=== PATIENT | female | born 1945 | race Caucasian/White ===

== ENCOUNTER 2019-11-02 17:25 | Emergency (ER) | payer MEDICARE, OTHER, SELFPAY ==
[2019-11-02] VITALS (7 sets, daily range): BP systolic 122–147; BP diastolic 75–86; PULSE 65–84; RESP 16–21; TEMP 36.2–36.8; O2SAT 94–97
--- NOTE | ~2019-11-02 | XR_ITS ---
EXAMINATION: XR chest 1V portable EXAM DATE: 11/02/2019 18:51 INDICATION: Visual change. Extensive airspace disease on prior study. TECHNIQUE: Portable AP frontal chest x-ray was obtained. Comparison is made to prior examination from 07/25/2019. FINDINGS: Previously seen extensive left-sided pneumonia has resolved. There is large gastroesophagea l hiatal hernia with adjacent atelectasis. No evidence of acute airspace disease today. No sizable pl eural effusion. No pneumothorax. Cardiac silhouette is enlarged but stable in size compared to prior exam. There are bony degenerative changes. IMPRESSION: 1. No acute cardiopulmonary findings. 2. Large hiatal hernia. Reviewed, dictated and finalized at location A. RETE TESTER
--- NOTE | ~2019-11-02 | CT_ITS ---
EXAMINATION: CT brain wo con EXAM DATE: 11/02/2019 18:45 INDICATION: Visual changes. TECHNIQUE: Spiral CT of the head was performed without contrast. Axial, coronal and sagittal images were reviewed. The dose-length product (DLP) for this examination was 605.33 mGy-cm. The exposure w as tailored according to patient size, and iterative reconstruction (ASIR) was used as additional dos e reduction technique. Comparison is made to prior examination from 07/16/2015. FINDINGS: There is no acute intraparenchymal hemorrhage. No evidence of intraparenchymal brain mass lesion. No evidence of acute infarction. Please note that initial head CT has limited sensitivity f or small or acute infarctions. There is mild periventricular and subcortical hypodensity, nonspecific but probably related to small vessel ischemic disease. There is moderate prominence of the sulci a nd ventricles related to cerebral atrophy. There is intracranial carotid arteriosclerosis. There a re no extra-axial collections. There is no mass effect or midline shift. The orbits are unremarkabl e. Soft tissue is unremarkable. The visualized sinuses and mastoid air cells are well aerated. IMPRESSION: 1. No acute intracranial findings. 2. Chronic age related findings. Reviewed, dictated and finalized at location A. UCT PROMOTER SALES PERSON
--- NOTE | 2019-11-02 17:41 | ECG_ITS ---
Measurements Intervals [place] Rate: 80 P: 39 [place]: 207 QRS: -42 QRSD: 82 T: 68 QT: 372 QTc: 430 Interpretive Statements SINUS RHYTHM LEFT AXIS DEVIATION VOLTAGE CRITERIA FOR LVH POOR R WAVE PROGRESSION, ANTERIOR LEADS BORDERLINE ECG Electronically Signed On 11-02-2019 20:28:21 [employer] by Kash Butler D.O.
[2019-11-02 18:03] LABS: Glucose Point of Care 129 (65-105)
--- NOTE | 2019-11-02 18:04 | ED.NEUROSD ---
HPI - Neuro Symptoms/Deficit General Chief Complaint: Neuro Symptoms/Deficit Stated Complaint: Visual Problems Time Seen by Provider: 11/02/19 17:48 Source: patient Mode of arrival: ambulatory Limitations: no limitations History of Present Illness HPI Narrative: This is a 74 year old female that presents to the ER for vision changes earlier today. Reports she was waiting in line at the [facility] and started to feel anxious. Reports she started seeing a black spot in her vision last lasted for about 20 minutes. Reports it then spontaneously resolved. Reports over the last couple weeks she has been feeling her heart racing. Reports she was diagnosed with atrial fibrillation in the end of last year while hospitalized for pneumonia. She has not followed up with a delinquency prevention officer since then. Denies fever, numbness, weakness, chest pain, shortness of breath, abdominal pain, vomiting, or dysuria. Related Data Home Medications Medication Instructions Recorded Confirmed duloxetine 60 mg PO DAILY 07/25/19 07/25/19 lisinopril 20 mg PO DAILY 07/25/19 07/25/19 simvastatin 20 mg PO DAILY 07/25/19 07/25/19 Allergies Allergy/AdvReac Type Severity Reaction Status Date / Time No Known Allergies Allergy Verified 07/30/19 12:03 Review of Systems Review of Systems: Narrative: CONSTITUTIONAL: Denies fever EYES: Reports visual changes ENT: Denies rhinorrhea, congestion, sore throat CARDIOVASCULAR: Reports palpitations. Denies chest pain RESPIRATORY: Denies cough or dyspnea. GASTROINTESTINAL: Denies abdominal pain, nausea, vomiting GENITOURINARY: Denies dysuria or hematuria. NEUROLOGIC: Denies headache, numbness, or weakness. All systems reviewed & are unremarkable except as noted in HPI and below PMFSH Past Medical History Medical History (Updated 11/02/19 @ 20:24 by Karli Yo PA-C) Anxiety Cerebral arteriosclerosis with history of previous stroke Depression HTN (hypertension) Paroxysmal atrial flutter Phlebitis In leg, taking Eliquis Shingles Surgical History Surgical History (System 07/30/19 @ 12:03 by Francisca Frazier) History of appendectomy History of tonsillectomy Social History Social History (System 07/30/19 @ 12:03 by Francisca Frazier) Smoking status: Never smoker Alcohol intake: current Drinks per week: 20 Substance use: never Gender identity (if verbalized by the patient): Female Spiritual care concerns: No Agree to blood products: Yes Exam Narrative: Exam Narrative: GENERAL: Well-appearing, well-nourished, and in no acute distress. HEAD: Normocephalic, atraumatic. EYES: PERRLA and EOMI. ENT: Nares clear, no rhinorrhea or epistaxis. Mucous membranes moist. Oropharynx without tonsillar hypertrophy exudate or other lesions. Bilateral TMs pearly goyal non-bulging NECK: Supple. No adenopathy or masses. CHEST: Clear to auscultation. No respiratory distress. No wheezes rales or rhonchi HEART: Regular rate and rhythm. No murmur heard. Normal peripheral pulses. ABDOMEN: Soft, nontender, nondistended, normal active bowel sounds. EXTREMITIES: Normal range of motion. No edema. Strength equal in bilateral upper and lower extremities SKIN: Warm, dry, no rash. NEURO: No focal deficits. Alert and oriented x3. CN II-XII grossly intact. Normal heel to angel PSYCH: Normal mood and affect Course Consultations Consultation #1: Spoke with Dr. Stephen about patient and workup who will follow up in clinic Date: 11/02/19 Time: 20:23 Vital Signs Vital signs: Vital Signs Respiratory Rate 21 H 11/02/19 17:37 Pulse Oximetry 94 11/02/19 17:37 Temperature 97.2 F L 11/02/19 17:41 Pulse Rate 83 11/02/19 19:21 Respiratory Rate 17 11/02/19 19:21 Blood Pressure 140/75 11/02/19 19:21 Pulse Oximetry 94 11/02/19 19:21 MDM - Neuro Symptoms/Deficit MDM Narrative Medical decision making narrative: Patient presents to the emergency department for vision changes earlier this afternoon. Patricia
[2019-11-02 18:09] LABS: Basophils Percent Auto 0.7 % (0.2-1.2); Eosinophils Percent Auto 0.5 % (0-4.4); Hematocrit 42.3 % (37.0-47.0); Hemoglobin 13.4 g/dL (12.0-15.0); Immature Granulocyte Absolute 0.02 K/mm3 (0.00-0.031); Immature Granulocyte Percent A 0.3 % (0-0.5); Lymphocytes Absolute Auto 1.47 K/mm3 (0.9-3.2); Lymphocytes Percent Auto 25.2 % (18.3-44.2); Mean Corpuscular HGB Conc 31.7 g/dl (32-36); Mean Corpuscular Volume 85.3 fl (80-100); Mean Platelet Volume 9.6 fl (7.4-10.4); Monocytes Absolute Auto 0.5 K/mm3 (0.1-0.6); Monocytes Percent Auto 9.1 % (2.6-8.5); Neutrophils Absolute Auto 3.7 K/mm3 (1.3-6.7); Neutrophils Percent Auto 64.2 % (45.5-73.1); Platelet Count Result 226 k/mm3 (150-375); Red Blood Count 4.96 M/mm3 (4.2-5.4); Red Cell Distribution Width 15.1 % (11.5-14.5); White Blood Count 5.8 K/mm3 (4.5-10.0)
[2019-11-02 18:18] LABS: INR 1.1; Prothrombin Time 13.6 Seconds (11.1-14.7)
[2019-11-02 18:19] LABS: Blood Urea Nitrogen 14 mg/dL (7-17); Calcium 9.5 mg/dL (8.4-10.2); Carbon Dioxide 23 mmol/L (22-30); Chloride 104 mmol/L (98-107); Estimated CRCL calculation 58 ml/min; Estimated Glomerular Filt Rate > 60; Glucose 132 mg/dL (65-105); Partial Thromboplastin Time 29.7 SECONDS (22.3-36.8); Potassium 4.1 mmol/L (3.4-5.0); Sodium 140 mmol/L (137-145)
[2019-11-02 18:31] LABS: Troponin I < 0.012 ng/mL (0.000-0.034)
[2019-11-02 18:32] LABS: Hemoglobin A1C 5.9 % (<5.7)
--- NOTE | 2019-11-02 19:12 | PC.NURSE ---
Bedside report to CARTER Faye, to continue care.
== END 2019-11-02 20:40 | disposition home or self-care (01) ==
PROVIDERS: Emergency Medicine Emergency Medical Services; Physician Assistant; Emergency Provider Emergency Medicine
DX: H53.9 Unspecified visual disturbance (principal); R00.2 Palpitations; I10 Essential (primary) hypertension; I48.92 Unspecified atrial flutter; I48.91 Unspecified atrial fibrillation; Z79.01 Long term (current) use of anticoagulants; I67.2 Cerebral atherosclerosis; Z86.73 Personal history of transient ischemic attack (TIA), and cerebral infarction without residual deficits; R73.9 Hyperglycemia, unspecified; R94.31 Abnormal electrocardiogram [ECG] [EKG]; K44.9 Diaphragmatic hernia without obstruction or gangrene
CPT/HCPCS: 36415; 70450; 71045; 80048; 82948; 83036; 84443; 84484; 85025; 85610; 85730; 93005; 99284

== ENCOUNTER 2019-11-24 13:44 | Observation (INO) | payer MEDICARE, OTHER, SELFPAY ==
[2019-11-24] VITALS (11 sets, daily range): BP systolic 133–165; BP diastolic 63–97; PULSE 87–101; RESP 16–29; TEMP 36.7–37.7; O2SAT 92–96; BMI 34.4
--- NOTE | ~2019-11-24 | XR_ITS ---
XR chest 1V portable 11/24/2019 16:09 Indication: Cough and dyspnea. Hypertension. Procedure: AP portable chest Comparison: Comparison to multiple prior studies sequentially, with oldest reviewed study dated 07/02. Findings: Borderline heart size. Large hiatal hernia. Bibasilar airspace disease, compatible with pne umonia. No pleural effusion or pneumothorax. No acute osseous abnormality. Impression: 1: Bibasilar airspace disease, compatible with pneumonia. Reviewed, dictated and finalized at location A. Impression: 1: Bibasilar airspace disease, compatible with pneumonia.
--- NOTE | 2019-11-24 13:59 | ED.URI ---
HPI - URI/Sore Throat General Chief Complaint: Shortness of Breath/Dyspnea Stated Complaint: COUGH, SOB Time Seen by Provider: 11/24/19 13:56 Source: patient and RN notes reviewed Mode of arrival: ambulatory Limitations: no limitations History of Present Illness HPI Narrative: Pt is a 74 y/o female who presents to the ED with c/o SOB and cough. She notes that she was admitted to [facility] on 07/26/19 for pneumonia, and states that her current symptoms feel similar to her previous pneumonia. Pt notes that she was also diagnosed with paroxysmal atrial flutter while in the hospital, and states that she was prescribed Metoprolol. She states that she hasn't been taking her Metoprolol as prescribed. Pt describes her recent cough as loose, but notes that she hasn't been consistently producing phlegm. She also reports central chest pain, body aches, subjective fever, and chills. Pt states that she is currently prescribed Eliquis 5 mg, but notes that she hasn't taken any of her normal medications this morning. She states that she hasn't had any recent travel. Pt denies any Hx of asthma or COPD. MD elicited complaint: cough and other (SOB) Pertinent past history: pneumonia Associated symptoms: fever (subjective), chills, chest pain (central chest pain) and other (body aches) Related Data Home Medications Medication Instructions Recorded Confirmed duloxetine 60 mg PO DAILY 07/25/19 07/25/19 lisinopril 20 mg PO DAILY 07/25/19 07/25/19 simvastatin 20 mg PO DAILY 07/25/19 07/25/19 Allergies Allergy/AdvReac Type Severity Reaction Status Date / Time No Known Allergies Allergy Verified 11/24/19 14:05 Review of Systems Review of Systems: Narrative: CONSTITUTIONAL: Reports subjective fever, chills, and body aches. Denies sweats. ENT: Denies rhinorrhea, congestion, sore throat, or otalgia. CARDIOVASCULAR: Reports central chest pain. Denies palpitations or edema. RESPIRATORY: Reports cough and dyspnea. GASTROINTESTINAL: Denies abdominal pain, nausea, vomiting, or diarrhea. All systems reviewed & are unremarkable except as noted in HPI and below PMFSH Past Medical History Medical History (Updated 11/24/19 @ 16:40 by Antonia Phelan MD) Anxiety Cerebral arteriosclerosis with history of previous stroke Depression HTN (hypertension) Paroxysmal atrial flutter Phlebitis In leg, taking Eliquis Pneumonia Shingles Surgical History Surgical History History of appendectomy History of tonsillectomy Social History Social History Smoking status: Never smoker Alcohol intake: current Drinks per week: 20 Substance use: never Gender identity (if verbalized by the patient): Female Spiritual care concerns: No Agree to blood products: Yes Exam Narrative: Exam Narrative: GENERAL: Well-appearing, well-nourished, and in no acute distress. HEAD: Normocephalic, atraumatic. EYES: PERRLA and EOMI. ENT: Nares clear, no rhinorrhea or epistaxis. Mucous membranes moist. NECK: Supple. CHEST: Coarse breath sounds. Mild tachypnea. Borderline hypoxemia. HEART: Regular rate and rhythm. No murmur heard. Normal peripheral pulses. ABDOMEN: Soft, nontender, nondistended, normal active bowel sounds. EXTREMITIES: Normal range of motion. No edema. SKIN: Warm, dry, no rash. NEURO: No focal deficits. Alert and oriented. Course Course Emergency Course: Patient presented to the emergency department for evaluation of cough and shortness of breath. At the time of initial assessment, ABCs are intact, vital signs notable for borderline hypoxemia. No yin respiratory distress, patient is able to converse, but does become dyspneic. Patient has recent history of pneumonia. Breath sounds are coarse. IV access obtained and labs are drawn. Laboratory results show a leukocytosis with left shift. There is lymphopenia as well. No transaminitis. No evidence of
--- NOTE | 2019-11-24 14:00 | ECG_ITS ---
Measurements Intervals [place] Rate: 92 P: 28 [place]: 172 QRS: -40 QRSD: 89 T: 68 QT: 359 QTc: 445 Interpretive Statements SINUS RHYTHM LEFT AXIS DEVIATION VOLTAGE CRITERIA FOR LVH POOR R WAVE PROGRESSION, ANTERIOR LEADS BORDERLINE ST-T WAVE ABNORMALITY- LATERAL LEADS BASELINE WANDER- I, II, III, AVL, AVF, V4-V6 BORDERLINE ECG Electronically Signed On 11-24-2019 16:13:33 CDT by Kash Butler D.O.
[2019-11-24 14:25] LABS: Alveolar/Arterial O2 Gradient 48.8 mmHg; Base Excess ABG 1.8 mEq/l (+/-2.0); Device ROOM AIR; Fractional Inspired Oxygen 21 %; HCO3 ABG 24.6 mEq/l (22.0-26.0); Modified Allen's Test Pass; Oxygen Content ABG 16.9 %vol (16.0-22.0); Oxygen Saturation ABG 93.6 % (95.0-100.0); Oxyhemoglobin 93.3 % THb (90.0-100.0); PCO2 ABG 32.8 mmHg (35.0-45.0); PO2 ABG 61.7 mmHg (80.0-100.0); PO2 FiO2 Ratio Arterial Blood 2.94 %; Site Drawn RIGHT RADIAL; Total Hemoglobin 12.9 g/dL (12.0-18.0); pH ABG 7.493 (7.350-7.450)
[2019-11-24 14:31] LABS: Basophils Percent Auto 0.3 % (0.2-1.2); Eosinophils Percent Auto 0.1 % (0-4.4); Hematocrit 40.1 % (37.0-47.0); Hemoglobin 12.5 g/dL (12.0-15.0); Immature Granulocyte Absolute 0.03 K/mm3 (0.00-0.031); Immature Granulocyte Percent A 0.2 % (0-0.5); Lymphocytes Percent Auto 7.3 % (18.3-44.2); Mean Corpuscular HGB Conc 31.2 g/dl (32-36); Mean Corpuscular Volume 86.6 fl (80-100); Mean Platelet Volume 9.7 fl (7.4-10.4); Monocytes Absolute Auto 0.6 K/mm3 (0.1-0.6); Monocytes Percent Auto 4.7 % (2.6-8.5); Neutrophils Absolute Auto 10.8 K/mm3 (1.3-6.7); Neutrophils Percent Auto 87.4 % (45.5-73.1); Platelet Count Result 258 k/mm3 (150-375); Red Blood Count 4.63 M/mm3 (4.2-5.4); Red Cell Distribution Width 14.8 % (11.5-14.5); White Blood Count 12.4 K/mm3 (4.5-10.0)
[2019-11-24] MEDS: MAGNESIUM SULF 2 GM/WATER 50ML 2 GM/50 ML BAG IVPB (14:32)
[2019-11-24] MEDS: SODIUM CHLORIDE 0.9% IV 1,000 ML 999 ML IV CONT (14:33)
[2019-11-24 14:41] LABS: Prothrombin Time 12.6 Seconds (11.1-14.7)
[2019-11-24 14:42] LABS: Lactic Acid Reflex 1.9 mmol/L (0.7-2.1); Partial Thromboplastin Time 26.2 SECONDS (22.3-36.8)
[2019-11-24 14:45] LABS: D Dimer 0.68 ug/mL (<0.48)
[2019-11-24 14:46] LABS: Alanine Aminotransferase 14 U/L (4-35); Albumin Level 4.3 g/dL (3.5-5.1); Alkaline Phosphatase 74 U/L (38-126); Aspartate Amino Transferase 27 U/L (14-36); Bilirubin,Total 0.7 mg/dL (0.2-1.3); Blood Urea Nitrogen 12 mg/dL (7-17); CRP 1.6 mg/dL (<1.0); Calcium 8.9 mg/dL (8.4-10.2); Carbon Dioxide 22 mmol/L (22-30); Chloride 104 mmol/L (98-107); Estimated Glomerular Filt Rate > 60; Glucose 133 mg/dL (65-105); Lactate Dehydrogenase 515 U/L (313-618); Potassium 4.1 mmol/L (3.4-5.0); Sodium 135 mmol/L (137-145)
[2019-11-24 14:55] LABS: NT Pro B Type Natriuretic Pept 69 PG/ML (5-100); Troponin I < 0.012 ng/mL (0.000-0.034)
--- NOTE | 2019-11-24 18:07 | PC.NURSE ---
Food tray ordered for pt, spoke to Jasmyne in dietary.
--- NOTE | 2019-11-24 18:37 | ADMGEN ---
This patient, Mandi Ramirez, was admitted to Medical Room 252-. Patient/family oriented to hospital policies and general routines including ID bracelet, bed and alarms, visiting hours, pain management, procedures, bathroom and other care routines, personal items, smoking policy, room service/diet, and visiting hours. Valuables list has been completed. Information on how to activate the Rapid Response Team has been discussed. Patient/Family are encouraged to report perceived risks to care and to ask questions if they do not understand what they are told or what they should do.
[2019-11-24] MEDS: ACETAMINOPHEN 325 MG TABLET 650 MG PO (21:37)
[2019-11-25] MEDS: DULOXETINE 60 MG CAPSULE.DR PO ×2 (00:13→10:06)
[2019-11-25] MEDS: SIMVASTATIN 20 MG TABLET PO ×2 (00:13→10:06)
[2019-11-25] MEDS: APIXABAN 5 MG TABLET PO ×2 (00:13→10:06)
[2019-11-25] MEDS: lisinopriL 20 MG TABLET PO ×2 (00:13→10:06)
--- NOTE | 2019-11-25 00:15 | PM.IMHP ---
H&P: HPI History of Present Illness Chief complaint: pneumonia symptoms Narrative: Date and time of patient contact: 11/25/2019 at 12:15 a.m. Mandi Ramirez is a 74 year old female with a past medical history of hypertension, paroxysmal atrial fibrillation, and obesity who presented to the ER with symptoms to similar episodes of pneumonia. She states that she has chronic shortness of breath. But she woke up on the morning of the with overwhelming body aches. It was also accompanied by fatigue. However she states that she has been having a long-standing issue with intermittent fatigue. However prior to coming to the ER she developed chills and subjective fever. She could not find her thermometer to check her temperature. She has been having a cough that is for the most part nonproductive. She was having some chest discomfort specifically associated with the cough. Charlton T-max since admission is 99.9. She does have intermittent palpitations but she never filled her prescription for metoprolol b.i.d. that was she was prescribed at the time of discharge from last hospitalization July 25, 2019. She had been started on the metoprolol due to paroxysmal atrial fibrillation. She did not get the medication filled because she was worried about cost. She has been taking Eliquis at home. She was discharged on Eliquis 5 mg p.o. b.i.d. which she was supposed to continue however she has decreased it down to Eliquis once daily. She had previously been on Eliquis 2.5 mg a day due to superficial thrombophlebitis history. She denies any lower extremity swelling. And has a disrupted sleep pattern. In fact she drinks four mixed drinks with 1 shot each a night in addition to 2 Tylenol p.m. to help her sleep. She has never had a sleep study. She reports that her snores more than she does. He does tell her that she snores on occasion. She denies any recent ill contacts or recent travel. However she did leave the house 7 days ago to go shopping at several different stores. Her is not currently sick. She does have chronic stress urinary incontinence. She denies any rhinorrhea, nasal congestion, or odynophagia. She has never had pulmonary function testing. She does not use nebulizers at home. Review of Systems Review of Systems: Narrative: 12 systems were reviewed with pertinent positives and negatives per HPI. Except as documented in the HPI, all other systems were reviewed and are negative. [facility] Past Medical History Medical History (Updated 11/25/19 @ 03:06 by Shakira Espinoza DO) Aortic stenosis Echocardiogram May 2019 1. The left ventricle has normal size with moderate concentric left ventricular hypertrophy. Overall the left ventricular function is good, EF 55-60% visually. 2. Right atrial chamber dimension is mildly enlarged. 3. Left atrial chamber dimension is mildly enlarged. 4. Right ventricular chamber dimension is mildly enlarged with normal systolic function. 5. There is mild aortic valve stenosis with a peak velocity of 221 cm/s, mean gradient of 9 mmHg, and aortic valve area of 2.1 cm2. 6. Mild pulmonary hypertension, estimated pulmonary arterial systolic pressure is 41 mmHg. 7. There is mild aortic atherosclerosis. 8. Atrial fibrillation versus flutter. 9. Technically difficult study. Depression Dyslipidemia Essential hypertension Overflow stress urinary incontinence in female Paroxysmal atrial flutter Diagnosed July 2019 Pneumonia Treated as outpatient July 2015 and January 2018, was admitted as inpatient July 2019 Pulmonary hypertension Mild on echocardiogram from May 2019 with RVSP 41 Shingles Superficial phlebitis TIA (transient ischemic attack) Surgical History Surgical History (Updated 11/25/19 @ 01:34 by Shakira Espinoza DO) History of appendectomy History of tonsillectomy Status post cataract extraction of both eyes with insertion of intraocular lens
[2019-11-25] MEDS: ALBUTEROL SULFATE (*SP) AEROSOL 1 PUFF 2 PUFF INHALATION ×3 (02:24→14:28)
[2019-11-25 06:01] LABS: Basophils Percent Auto 0.2 % (0.2-1.2); Eosinophils Percent Auto 0.2 % (0-4.4); Hematocrit 33.9 % (37.0-47.0); Hemoglobin 10.6 g/dL (12.0-15.0); Immature Granulocyte Absolute 0.05 K/mm3 (0.00-0.031); Immature Granulocyte Percent A 0.4 % (0-0.5); Lymphocytes Absolute Auto 1.74 K/mm3 (0.9-3.2); Lymphocytes Percent Auto 14.2 % (18.3-44.2); Mean Corpuscular HGB Conc 31.3 g/dl (32-36); Mean Corpuscular Hemoglobin 27.1 pg (26-34); Mean Corpuscular Volume 86.7 fl (80-100); Mean Platelet Volume 10.3 fl (7.4-10.4); Monocytes Absolute Auto 0.5 K/mm3 (0.1-0.6); Monocytes Percent Auto 4.4 % (2.6-8.5); Neutrophils Absolute Auto 9.9 K/mm3 (1.3-6.7); Neutrophils Percent Auto 80.6 % (45.5-73.1); Platelet Count Result 231 k/mm3 (150-375); Red Blood Count 3.91 M/mm3 (4.2-5.4); Red Cell Distribution Width 14.8 % (11.5-14.5); White Blood Count 12.3 K/mm3 (4.5-10.0)
[2019-11-25 06:02] LABS: Blood Urea Nitrogen 13 mg/dL (7-17); Calcium 8.5 mg/dL (8.4-10.2); Carbon Dioxide 26 mmol/L (22-30); Chloride 107 mmol/L (98-107); Estimated CRCL calculation 86 ml/min; Estimated Glomerular Filt Rate > 60; Glucose 114 mg/dL (65-105); Potassium 3.6 mmol/L (3.4-5.0); Sodium 136 mmol/L (137-145)
[2019-11-25 06:30] VITALS: BP 141/63; PULSE 84; RESP 20; TEMP 36.7; O2SAT 92
[2019-11-25 10:05] VITALS: PULSE 84
[2019-11-25] MEDS: ACETAMINOPHEN 325 MG TABLET 650 MG PO (10:05)
[2019-11-25] MEDS: METOPROLOL TARTRATE 25 MG TABLET PO (10:05)
[2019-11-25 13:50] VITALS: O2SAT 95
[2019-11-25 13:55] VITALS: O2SAT 94
[2019-11-25 14:00] VITALS: O2SAT 95
--- NOTE | 2019-11-25 14:10 | HOMEO2EVAL ---
Home Oxygen Evaluation RC: Home Oxygen (O2) Evaluation Start: 11/25/19 07:21 Freq: ONCE Status: Active Protocol: RPE Activity Type Activity Date Activity User E-Sign Co-Sign Detail Recorded Client Recorded Date Recorded By Document 11/25/19 13:50 RAIN [id number] 11/25/19 14:10 RAIN Document 11/25/19 13:55 RAIN [id number] 11/25/19 14:10 RAIN Document 11/25/19 14:00 RAIN [id number] 11/25/19 14:10 RAIN 11/25/19 11/25/19 11/25/19 13:50 13:55 14:00 Home O2 Evaluation Test Phase Resting Exercise Resting Oxygen Delivery Room Air Room Air Room Air Pulse Oximetry (90-100 %) 95 94 95 Ambulation Distance (feet) 25 Home Oxygen Evaluation Comments No home o2 needed Treatment Charges O2 Evaluation
--- NOTE | 2019-11-25 14:11 | PCRCNOTE ---
Home o2 eval done, No home o2 needed
--- NOTE | 2019-11-25 16:20 | PM.DS ---
DS: Diagnosis Admitting Diagnosis Admitting Diagnosis: Pneumonia, unspecified organism Discharge Diagnosis (1) Community acquired pneumonia: Qualifiers: Laterality: unspecified laterality Qualified Code(s): J18.9 - Pneumonia, unspecified organism Code(s): J18.9 - Pneumonia, unspecified organism Status: Acute Assessment and Plan: Date of Service 11/25/19 Ms. Tres Ramirez is a 74yo F with history of paroxysmal atrial flutter, hypertension who presented to the emergency department for evaluation of sudden onset body aches, shortness of breath, subjective fever. She reported no recent ill contacts or recent travel. She had been following state-wide stay at home orders aside from a trip to the grocery store around 7 days prior to arrival. Chest x-ray revealed bibasilar airspace disease compatible with pneumonia. She was started on empiric antibiotic therapy with azithromycin and Rocephin. She met criteria for COVID-19 testing and was tested here through the [place] [facility]. She was very mildly hypoxemic on arterial blood gas, but was tolerating room air at time of discharge. She was hemodynamically stable for discharge on 11/25/2019 with instructions to follow-up with her primary care provider. She was provided with detailed instructions regarding possible COVID-19 diagnosis and self isolation. Was notified by infection control 11/27/19 AM that her COVID-19 testing was negative. I called and spoke with the patient 11/27/19 regarding her negative results and she reported she was feeling improved. She was again reminded of worrisome signs and symptoms to be aware of and to call her PCP for any further issues. She was discharged with oral cefdinir and azithromycin to complete the course along with an albuterol inhaler. (2) Paroxysmal atrial flutter: Code(s): I48.92 - Unspecified atrial flutter Status: Chronic Assessment and Plan: Patient noted she was diagnosed with paroxysmal atrial flutter back in July 2019. She noted that she was started on metoprolol at that time, but she did not picker and packer prescription for the metoprolol. She was also started on Eliquis and has been taking less than the prescribed dose. Restarted back on metoprolol and Eliquis here. Follow-up with PCP. (3) History of snoring: Code(s): Z87.898 - Personal history of other specified conditions Status: Chronic Assessment and Plan: Patient reports symptoms of intermittent fatigue, disrupted sleep, and insomnia. Consider sleep study outpatient eventually to evaluate for sleep apnea. Follow-up with PCP. DS: Summary Time Spent with Patient Time attestation: Total time spent providing and/or coordinating discharge services: 40 minutes Exam Narrative: Exam Narrative: General: Female resting supine in bed in no acute distress. HEENT: Normocephalic, EOMI, oral mucosa moist. Cardiovascular: Rate and rhythm are regular. Respiratory: Lungs clear to auscultation all cruz. Non-labored breathing. Tolerating room air. Abdomen: Soft, non-tender, non-distended, bowel sounds present. Extremities: Peripheral pulses intact. No edema. Neuro: No focal neurological deficits. Speech is clear. DS: Data Imaging Radiologist's impression: ITS Impressions Chest X-Ray 11/24/19 16:12 Impression: 1: Bibasilar airspace disease, compatible with pneumonia. Discharge Plan Discharge Attending physician on discharge: Jennifer Ho Consulting providers: Rory Lino ; Kash Butler ; Shakira Espinoza ; Rebeka Gould Discharging Clinician: Rebeka Gould Anticipated Discharge Date/Time: 11/25/19 12:30 Patient Disposition: Home, Self-Care Activity: as tolerated Diet: as tolerated Discharge Instructions: You will be contacted with your COVID-19 testing results when they are luis [email or web address]
[2019-11-26 12:30] LABS: Procalcitonin <0.10 ng/mL (<0.10)
[2019-12-08 14:02] LABS: Mycoplasma IgM Antibody Titer 254 U/mL (<770)
== END 2019-11-25 16:55 | disposition home or self-care (01) ==
LOC: ANHED 16:40 → ANH2MED 18:35
PROVIDERS: Internal Medicine; Admitting Provider Internal Medicine; Emergency Provider Emergency Medicine; Visit Provider Family Medicine
DX: J18.9 Pneumonia, unspecified organism (principal); R09.02 Hypoxemia; I48.92 Unspecified atrial flutter; I10 Essential (primary) hypertension; R06.83 Snoring; I27.20 Pulmonary hypertension, unspecified; E78.5 Hyperlipidemia, unspecified; N39.490 Overflow incontinence; N39.3 Stress incontinence (female) (male); Z87.891 Personal history of nicotine dependence; Z86.73 Personal history of transient ischemic attack (TIA), and cerebral infarction without residual deficits; Z20.828 Contact with and (suspected) exposure to other viral communicable diseases
CPT/HCPCS: 36415; 36600; 71045; 80048; 80053; 82805; 83605; 83615; 83880; 84145; 84484; 85025; 85380; 85610; 85730; 86140; 86738; 87040; 87804; 93005; 94618; 94640; 96365; 96367; 99285; A9270; G0378; J0456; J0696; J3475; J7030

== ENCOUNTER 2020-08-26 15:02 | Emergency (ER) | payer MEDICARE, OTHER, SELFPAY ==
[2020-08-26 15:21] VITALS: BP 140/71; PULSE 65; RESP 18; TEMP 36.6; O2SAT 95
--- NOTE | 2020-08-26 16:48 | ED.SKABFB ---
HPI - Skin/Abscess/Foreign Bdy General Chief complaint: Skin/Abscess/Foreign Body Stated complaint: rash under left breast Time Seen by Provider: 08/26/20 16:15 Source: patient Mode of arrival: ambulatory Limitations: no limitations History of Present Illness HPI narrative: This is a 75 year old female that presents to the ER for a rash under the left breast noted yesterday. Reports the rash is itchy and painful. Denies fever. Related Data Allergies Allergy/AdvReac Type Severity Reaction Status Date / Time No Known Allergies Allergy Verified 08/26/20 15:24 Review of Systems Review of Systems: Narrative: CONSTITUTIONAL: Denies fever SKIN: Reports rash and itching. All systems reviewed & are unremarkable except as noted in HPI and below PMFSH Past Medical History Medical History (Updated 08/26/20 @ 16:58 by Karli Yo PA-C) History of hyperlipidemia History of hypertension Social History Social History Gender identity (if verbalized by the patient): Female Exam Narrative: Exam Narrative: GENERAL: Well-appearing, well-nourished, and in no acute distress. HEAD: Normocephalic, atraumatic. EYES: EOMI. EXTREMITIES: Normal range of motion. No edema. SKIN: Warm, dry. Under the left breast there is a small area of erythema consistent with intertrigo NEURO: No focal deficits. Alert and oriented x3. PSYCH: Normal mood and affect Course Vital Signs Vital signs: Vital Signs Temperature 97.9 F 08/26/20 15:21 Pulse Rate 65 08/26/20 15:21 Respiratory Rate 18 08/26/20 15:21 Blood Pressure 140/71 08/26/20 15:21 Pulse Oximetry 95 08/26/20 15:21 Temperature 97.9 F 08/26/20 15:21 Pulse Rate 90 08/26/20 17:10 Respiratory Rate 20 08/26/20 17:10 Blood Pressure 138/88 08/26/20 17:10 Pulse Oximetry 100 08/26/20 17:10 MDM - Skin/Abscess/Foreign Bdy MDM Narrative Medical decision making narrative: Patient presents to the ER for rash consistent with intertrigo. Was instructed on care and will be started on antifungal cream. She was instructed to follow-up with her primary care doctor Critical Care Time Critical Care Time Critical Care Time: No Discharge Plan Discharge Clinical Impression: Candidal intertrigo Patient Disposition: Home, Self-Care Condition: Stable Instructions: Skin Yeast Infection (ED) Additional Instructions: Return to the emergency department if you experience fever, redness and swelling of your wound, abnormal drainage of your wound, or any other symptoms that are concerning to you Keep the area clean and dry. Apply antifungal cream as prescribed Follow-up with your primary care doctor Prescriptions: New clotrimazole 1 % cream 1 applic topical BID 14 Days Qty: 28 RF: 0 Follow-up/Referrals: KARINA,XIMENA Montesinos MD [Primary Care Provider] - 1 Week
[2020-08-26 17:10] VITALS: BP 138/88; PULSE 90; RESP 20; O2SAT 100
== END 2020-08-26 17:11 | disposition home or self-care (01) ==
PROVIDERS: Emergency Provider Emergency Medicine; PCP Internal Medicine
DX: B37.2 Candidiasis of skin and nail (principal); E78.5 Hyperlipidemia, unspecified; I10 Essential (primary) hypertension; L30.4 Erythema intertrigo
CPT/HCPCS: 99283

== ENCOUNTER 2021-03-15 11:33 | Observation (INO) | payer MEDICARE, OTHER, SELFPAY ==
[2021-03-15] VITALS (10 sets, daily range): BP systolic 148–197; BP diastolic 74–100; PULSE 71–98; RESP 18–25; TEMP 36.4–37.5; O2SAT 23–97; BMI 34.9
--- NOTE | ~2021-03-15 | XR_ITS ---
EXAMINATION: XR chest 1V portable EXAM DATE: 03/15/2021 12:12 INDICATION: Dyspnea, shortness of breath for a day. History high blood pressure. TECHNIQUE: Portable AP frontal chest x-ray was obtained. Comparison is made to prior examination from 11/24/2019. FINDINGS: There are small patchy bilateral opacities, atelectasis or infection. The cardiomediastinal silhouette is prominent but magnified on this AP technique. There is no pneumothorax suspected. Ther e are no pleural effusions. IMPRESSION: Small patchy bilateral mid and lower lung zone opacities, could be infection or atelectas is. Reviewed, dictated and finalized at location B. IMPRESSION: Small patchy bilateral mid and lower lung zone opacities, could be infection or atelectasis.
--- NOTE | ~2021-03-15 | CT_ITS ---
EXAMINATION: CTA chest PE protocol DATE: 03/15/2021 14:06 INDICATION: Chest pain. Shortness of breath. TECHNIQUE: Computed tomography angiography (CTA) of the chest was performed with 100 mL Omnipaque-350 intravenous contrast timed to evaluate the pulmonary arteries. Coronal maximum intensity projection 3D-reconstructions were created by the technologist. Automated exposure control and iterative reconst ruction technique were employed. The dose-length product was 545.23 mGy-cm. COMPARISON: Chest CT 07/16/2015 FINDINGS: There is chronic peripheral septal thickening in all lobes with a peripheral and lower lung predominance with architectural distortion and associated with groundglass opacities, consistent wit h chronic interstitial lung disease. No bronchiectasis or honeycombing. There are groundglass opaciti es and centrilobular nodules in left upper lobe and left lower lobe and peripheral lingular airspace opacities, consistent with pneumonia. No pleural effusion. Cardiomegaly is noted. No pericardial effu roly. There is a large sliding hiatal hernia. There is no pulmonary embolus. There is mild thoracic s pondylosis. IMPRESSION: 1. No pulmonary embolus. 2. Acute left lung disease, consistent with pneumonia. 3. Mild chronic interstitial lung disease in a pattern of nonspecific interstitial pneumonia (NSIP). 4. Large sliding hiatal hernia. Reviewed, dictated and finalized at location A. IMPRESSION: 1. No pulmonary embolus. 2. Acute left lung disease, consistent with pneumonia. 3. Mild chronic interstitial lung disease in a pattern of nonspecific interstit ial pneumonia (NSIP). 4. Large sliding hiatal hernia.
--- NOTE | 2021-03-15 11:51 | ECG_ITS ---
Measurements Intervals [place] Rate: 72 P: -1 [place]: 190 QRS: -38 QRSD: 85 T: 114 QT: 373 QTc: 410 Interpretive Statements SINUS RHYTHM LEFT AXIS DEVIATION LEFT VENTRICULAR HYPERTROPHY AND ST-T CHANGE BORDERLINE R WAVE PROGRESSION, ANTERIOR LEADS BASELINE WANDER- I, II, AVR, AVL, V1 BORDERLINE ECG Electronically Signed On 03-15-2021 15:55:34 CDT by Kash Butler D.O.
[2021-03-15 12:08] LABS: Basophils Percent Auto 0.3 % (0.2-1.2); Eosinophils Percent Auto 0.1 % (0-4.4); Hematocrit 48.5 % (37.0-47.0); Hemoglobin 15.4 g/dL (12.0-15.0); Immature Granulocyte Absolute 0.04 K/mm3 (0.00-0.031); Immature Granulocyte Percent A 0.3 % (0-0.5); Lymphocytes Absolute Auto 1.55 K/mm3 (0.9-3.2); Lymphocytes Percent Auto 13.4 % (18.3-44.2); Mean Corpuscular HGB Conc 31.8 g/dl (32-36); Mean Corpuscular Hemoglobin 30.1 pg (26-34); Mean Corpuscular Volume 94.7 fl (80-100); Mean Platelet Volume 9.8 fl (7.4-10.4); Monocytes Absolute Auto 0.5 K/mm3 (0.1-0.6); Monocytes Percent Auto 4.5 % (2.6-8.5); Neutrophils Absolute Auto 9.4 K/mm3 (1.3-6.7); Neutrophils Percent Auto 81.4 % (45.5-73.1); Platelet Count Result 180 k/mm3 (150-375); Red Blood Count 5.12 M/mm3 (4.2-5.4); Red Cell Distribution Width 14.7 % (11.5-14.5); White Blood Count 11.6 K/mm3 (4.5-10.0)
--- NOTE | 2021-03-15 12:56 | ED.SOB ---
HPI - SOB/Dyspnea General Chief Complaint: Shortness of Breath/Dyspnea Stated Complaint: Cough,Aching Time Seen by Provider: 03/15/21 12:04 Source: RN notes reviewed History of Present Illness HPI Narrative: Patient presents to emergency department from home for shortness of breath. Patient states that this morning she developed shortness of breath with a cough this been nonproductive she has been associated with nausea and vomiting patient states currently she has no nausea or vomiting at this time does feel short of breath sitting in bed states is worse with ambulation and exertion. Patient states she did have her first Covid vaccine was due for second February 13 but is not had it yet she denies any chest pain abdominal pain or any other symptoms Related Data Home Medications Medication Instructions Recorded Confirmed lisinopril 20 mg PO DAILY 07/25/19 11/24/19 simvastatin 20 mg PO DAILY 07/25/19 11/24/19 Eliquis 5 mg PO DAILY 11/24/19 11/24/19 bupropion HCl mg PO 03/15/21 ferrous sulfate mg 03/15/21 Allergies Allergy/AdvReac Type Severity Reaction Status Date / Time No Known Allergies Allergy Verified 03/15/21 11:58 Review of Systems Review of Systems: Narrative: Gen.: Denies fevers or chills ENT: Denies congestion Respiratory: See HPI CV: Denies chest pain or palpitations GI: Denies abdominal pain or diarrhea. Reports nausea vomiting denies burning, urgency, frequency or hematuria Musculoskeletal: Denies back pain or muscle pain Neuro: Denies numbness, tingling, weakness or focal weakness Skin: Denies rash Except as documented, all other systems reviewed and negative [facility] Past Medical History Medical History Aortic stenosis Echocardiogram May 2019 1. The left ventricle has normal size with moderate concentric left ventricular hypertrophy. Overall the left ventricular function is good, EF 55-60% visually. 2. Right atrial chamber dimension is mildly enlarged. 3. Left atrial chamber dimension is mildly enlarged. 4. Right ventricular chamber dimension is mildly enlarged with normal systolic function. 5. There is mild aortic valve stenosis with a peak velocity of 221 cm/s, mean gradient of 9 mmHg, and aortic valve area of 2.1 cm2. 6. Mild pulmonary hypertension, estimated pulmonary arterial systolic pressure is 41 mmHg. 7. There is mild aortic atherosclerosis. 8. Atrial fibrillation versus flutter. 9. Technically difficult study. Depression Dyslipidemia Esophageal ulcer Approximately 15 years ago Essential hypertension History of hyperlipidemia History of hypertension Overflow stress urinary incontinence in female Paroxysmal atrial flutter Diagnosed July 2019 Pneumonia Treated as outpatient July 2015 and January 2018, was admitted as inpatient July 2019 Pulmonary hypertension Mild on echocardiogram from May 2019 with RVSP 41 Shingles Superficial phlebitis TIA (transient ischemic attack) Surgical History Surgical History (System 08/30/20 @ 08:57 by Viri Minaya) History of appendectomy History of tonsillectomy Status post cataract extraction of both eyes with insertion of intraocular lens Family History Family History (System 08/30/20 @ 08:57 by Viri Minaya) Mother Breast cancer She of old age at 90 years old Son Pulmonary embolism He in his 50's. Father Pneumonia in his 90's with pneumonia. Social History Social History Social History: The patient reports that she used to smoke 1 cigarette a day for about 10-15 years. Primary care physician: Dr. Nilay Stephen Code status: Full code. The patient does not have advanced directives in place. Years smoked: 20 Smoking status: Former smoker Tobacco type: cigarettes Alcohol intake: current D
[2021-03-15 13:03] LABS: Prothrombin Time 12.8 Seconds (11.1-14.7)
[2021-03-15 13:06] LABS: Partial Thromboplastin Time 23.9 SECONDS (22.3-36.8)
[2021-03-15 13:08] LABS: Lactic Acid Reflex 2.4 mmol/L (0.7-2.1)
[2021-03-15 13:09] LABS: Alanine Aminotransferase 26 U/L (4-35); Albumin Level 4.7 g/dL (3.5-5.1); Alkaline Phosphatase 87 U/L (38-126); Anion Gap 10 mmol/L (8-16); Aspartate Amino Transferase 34 U/L (14-36); Bilirubin,Total 1.2 mg/dL (0.2-1.3); Blood Urea Nitrogen 10 mg/dL (7-17); Calcium 10.4 mg/dL (8.4-10.2); Carbon Dioxide 25 mmol/L (22-30); Chloride 106 mmol/L (98-107); Estimated CRCL calculation 68 ml/min; Estimated Glomerular Filt Rate > 60; Glucose 124 mg/dL (65-105); Lipase 127 U/L (23-300); Potassium 4.4 mmol/L (3.4-5.0); Sodium 141 mmol/L (137-145)
[2021-03-15 13:12] LABS: D Dimer 0.62 ug/mL (<0.48)
[2021-03-15 13:20] LABS: NT Pro B Type Natriuretic Pept 254 pg/mL (5-100); Troponin I < 0.012 ng/mL (0.000-0.034)
--- NOTE | 2021-03-15 13:47 | PC.NURSE ---
pt ambulatory to the bathroom to attempt to provide urine sample
[2021-03-15 14:25] LABS: Add Urine Microscopic? YES; Appearance Urine Cloudy (Clear); Bacteria Urine 2+ /hpf; Bilirubin Urine Negative (Negative); Blood Urine Negative (Negative); Color Urine Yellow (Yellow); Glucose Urine UA Negative (Negative); Ketones Urine Negative (Negative); Leukocyte Esterase Ur Trace LEU/UL (Negative); Mucus Urine Moderate /lpf; Nitrate Urine Negative (Negative); Protein Urine 1+ mg/dL (Negative); Specific Grav Ur 1.025 (1.001-1.035); Squamous Epithelial Cell Urine Many /hpf (Few); Urobilinogen Urine Negative mg/dL (<2.0)
[2021-03-15] MEDS: SODIUM CHLORIDE 0.9% IV 1,000 ML 999 ML IV CONT (14:37)
[2021-03-15 15:52] LABS: Reflex Lactic Acid Yes or No Add Lactic
[2021-03-15 16:55] LABS: Lactic Acid 2.9 mmol/L (0.7-2.1)
[2021-03-15] MEDS: SODIUM CHLORIDE 0.9% IV 1,000 ML 100 ML IV CONT (17:00)
--- NOTE | 2021-03-15 19:07 | PM.IMHP ---
H&P: HPI History of Present Illness Date/Time: 03/15/21 19:07The patient came to the emergency room with shortness of breath. The patient developed a low-grade fever of 99.5 this morning. She had a nonproductive cough. She has some nausea and vomiting. The patient had 1 COVID vaccine but did not get her 2nd COVID vaccine. WBCs 11.6. lactic acid was 2.4 and 2.9. Calcium 10.4. UA trace leuko side history is WBCs 10-15 many squamous cell. 2+ urine bacteria. Patient was started on Rocephin and azithromycin. Chest x-ray was read as small patchy bilateral mid and lower lung opacities could be infection or atelectasis. CTA was read as 1. No pulmonary embolus. 2. Acute left lung disease, consistent with pneumonia. 3. Mild chronic interstitial lung disease in a pattern of nonspecific interstitial pneumonia (NSIP). 4. Large sliding hiatal hernia. patient is being admitted to observation status on 03/15/2021. Chief Complaint: Fever and cough Review of Systems Review of Systems: All systems reviewed & are unremarkable except as noted in HPI and below Constitutional: Constitutional: Reports as per HPI and Reports no additional constitutional complaints Eyes: Eyes: Reports as per HPI and Reports no additional eye complaints ENT: Reports system reviewed and no additional complaints, except as documented and Reports Normal hearing present Cardiovascular: Cardiovascular: Reports no additional cardiovascular complaints Respiratory: Respiratory: Reports no additional respiratory complaints and Reports no additional respiratory complaints Gastrointestinal: Gastrointestinal: Reports as per HPI and Reports no additional gastrointestinal complaints Musculoskeletal: Musculoskeletal: Reports no additional musculoskeletal complaints Integumentary/Breasts: Skin/Breast: Reports system reviewed and no additional complaints, except as docu and Reports as per HPI Neurologic: Reports system reviewed and no additional complaints, except as documented, Reports as per HPI and Reports Normal hearing present Psychiatric: Psychiatric: Reports no additional psychiatric complaints and Reports as per HPI Endocrine: Endocrine: Reports no additional endocrine complaints Hematologic/Lymphatic: Hematologic/Lymphatic: Reports no additional hematologic/lymphatic complaints Allergic/Immunologic: Allergic/Immunologic: Reports no additional allergic/immunologic complaints [facility] Past Medical History Medical History (Updated 03/15/21 @ 19:34 by Latisha Pope NP) Aortic stenosis Echocardiogram May 2019 1. The left ventricle has normal size with moderate concentric left ventricular hypertrophy. Overall the left ventricular function is good, EF 55-60% visually. 2. Right atrial chamber dimension is mildly enlarged. 3. Left atrial chamber dimension is mildly enlarged. 4. Right ventricular chamber dimension is mildly enlarged with normal systolic function. 5. There is mild aortic valve stenosis with a peak velocity of 221 cm/s, mean gradient of 9 mmHg, and aortic valve area of 2.1 cm2. 6. Mild pulmonary hypertension, estimated pulmonary arterial systolic pressure is 41 mmHg. 7. There is mild aortic atherosclerosis. 8. Atrial fibrillation versus flutter. 9. Technically difficult study. Depression Dyslipidemia Esophageal ulcer Approximately 15 years ago Essential hypertension History of hyperlipidemia History of hypertension Overflow stress urinary incontinence in female Paroxysmal atrial flutter Diagnosed July 2019 Pneumonia Treated as outpatient July 2015 and January 2018, was admitted as inpatient July 2019 Pulmonary hypertension Mild on echocardiogram from May 2019 with RVSP 41 Shingles Superficial phlebitis TIA (transient ischemic attack) Surgical History Surgical History History of appendectomy History of tonsillectomy Status post cataract extraction of both
[2021-03-15] MEDS: METOPROLOL TARTRATE 25 MG TABLET PO (20:48)
[2021-03-15] MEDS: ACETAMINOPHEN 325 MG TABLET 650 MG PO (21:17)
[2021-03-16] VITALS (10 sets, daily range): BP systolic 139–170; BP diastolic 54–93; PULSE 61–87; RESP 14–20; TEMP 36.1–36.9; O2SAT 95–97
[2021-03-16 06:50] LABS: Basophils Percent Auto 0.4 % (0.2-1.2); Eosinophils Absolute Auto 0.1 K/mm3 (0-0.3); Eosinophils Percent Auto 1.2 % (0-4.4); Hematocrit 43.1 % (37.0-47.0); Hemoglobin 12.9 g/dL (12.0-15.0); Immature Granulocyte Absolute 0.03 K/mm3 (0.00-0.031); Immature Granulocyte Percent A 0.4 % (0-0.5); Lymphocytes Absolute Auto 1.58 K/mm3 (0.9-3.2); Lymphocytes Percent Auto 19.1 % (18.3-44.2); Mean Corpuscular HGB Conc 29.9 g/dl (32-36); Mean Corpuscular Hemoglobin 30.3 pg (26-34); Mean Corpuscular Volume 101.2 fl (80-100); Mean Platelet Volume 10.2 fl (7.4-10.4); Monocytes Absolute Auto 0.5 K/mm3 (0.1-0.6); Monocytes Percent Auto 6.2 % (2.6-8.5); Neutrophils Percent Auto 72.7 % (45.5-73.1); Platelet Count Result 139 k/mm3 (150-375); Red Blood Count 4.26 M/mm3 (4.2-5.4); White Blood Count 8.3 K/mm3 (4.5-10.0)
[2021-03-16 07:01] LABS: Alanine Aminotransferase 16 U/L (4-35); Albumin Level 3.6 g/dL (3.5-5.1); Alkaline Phosphatase 53 U/L (38-126); Anion Gap 8 mmol/L (8-16); Aspartate Amino Transferase 22 U/L (14-36); Bilirubin,Total 1.6 mg/dL (0.2-1.3); Blood Urea Nitrogen 9 mg/dL (7-17); Calcium 8.7 mg/dL (8.4-10.2); Carbon Dioxide 22 mmol/L (22-30); Chloride 108 mmol/L (98-107); Estimated CRCL calculation 84 ml/min; Estimated Glomerular Filt Rate > 60; Glucose 94 mg/dL (65-105); Potassium 3.5 mmol/L (3.4-5.0); Sodium 138 mmol/L (137-145)
[2021-03-16] MEDS: APIXABAN 5 MG TABLET PO (08:25)
[2021-03-16] MEDS: SIMVASTATIN 20 MG TABLET PO (08:25)
[2021-03-16] MEDS: buPROPion HCL XL (24 HR) 150 MG TABCR PO (08:25)
[2021-03-16] MEDS: SODIUM CHLORIDE 0.9% IV 1,000 ML 100 ML IV CONT ×2 (08:25→20:19)
[2021-03-16] MEDS: lisinopriL 20 MG TABLET PO (08:25)
[2021-03-16] MEDS: FERROUS SULFATE 324 MG TABLET PO (08:25)
[2021-03-16] MEDS: METOPROLOL TARTRATE 25 MG TABLET PO ×2 (08:25→20:18)
--- NOTE | 2021-03-16 15:01 | PM.IMPN ---
Progress Note: A&P Assessment and Plan (1) Community acquired pneumonia: Code(s): J18.9 - Pneumonia, unspecified organism Status: Acute Assessment and Plan: Continue with azithromycin Rocephin Follow [facility] and [place] Continue with inhalers (2) Suspected 2019-nCoV infection: Code(s): Z20.822 - Contact with and (suspected) exposure to COVID-19 Status: Acute Assessment and Plan: Patient is on conact and droplet isolation The patient has had 1 vaccine but not the 2nd 1 Follow COVID results (3) Paroxysmal atrial flutter: Code(s): I48.92 - Unspecified atrial flutter Status: Chronic Assessment and Plan: Continue with Eliquis and metoprolol Monitor (4) Anxiety: Code(s): F41.9 - Anxiety disorder, unspecified Status: Chronic Assessment and Plan: Stable Continue with bupropion (5) History of hyperlipidemia: Code(s): Z86.39 - Personal history of other endocrine, nutritional and metabolic disease Status: Chronic Assessment and Plan: continue with simvastatin (6) History of hypertension: Code(s): Z86.79 - Personal history of other diseases of the circulatory system Status: Chronic Assessment and Plan: continue lisinopril metoprolol Monitor Subjective Date/time seen: 03/16/21 15:01 pt seen and evaluated; denies any SOB or CP on RA Review of Systems Review of Systems: All systems reviewed & are unremarkable except as noted in HPI and below Exam Const: General: no acute distress, alert and awake Orientation/consciousness: patient oriented x3 HENMT: Head: normocephalic and atraumatic Ears: hearing grossly normal bilaterally and external ears normal Face and sinus: face symmetric Mouth: Yes Normal oral and palatal mucosa present Eyes: EOM: EOMs intact bilaterally Neck: Neck: full ROM, trachea midline and no JVD Chest: Chest palpation & inspection: normal inspection of the chest Resp: Effort & Inspection: normal respiratory effort Cardio: Jugular venous distension: no JVD GI: Inspection: normal to inspection Back/Spine/Pelvis: Back: no CVA tenderness Skin: General skin exam: normal color Neuro: General: patient oriented x3 and CN's II-XI intact bilaterally Speech: normal speech Psych: Appearance: grossly normal Affect: normal affect Judgement: Good judgement present (Psych) Objective Data Vital Signs Vital Signs: Vital Signs - 24 hr 03/15/21 15:49 03/15/21 16:00 03/15/21 20:00 Temperature 37.4 C 36.4 C Pulse Rate 80 78 83 Respiratory Rate 18 18 20 Blood Pressure 151/89 H 157/74 H 152/100 H Pulse Oximetry 23 L 97 94 03/15/21 20:48 03/16/21 00:00 03/16/21 04:00 Temperature 36.3 C L 36.1 C L Pulse Rate 78 70 71 Respiratory Rate 20 18 Blood Pressure 139/69 170/86 H Pulse Oximetry 95 95 03/16/21 08:25 03/16/21 08:34 Temperature Pulse Rate 66 Respiratory Rate Blood Pressure Pulse Oximetry 96 Intake/Output Intake/Output: Intake & Output 03/13/21 03/14/21 03/15/21 03/16/21 23:59 23:59 23:59 23:59 Intake Total 1530 1370 Balance 1530 1370 Meds/Results Medications: Active Medications Generic Name Dose Route Start Last Admin Trade Name Fre PRN Reason Stop Dose Admin Acetaminophen 650 mg 03/15/21 20:53 03/15/21 21:17 Acetaminophen 325 Mg Tablet PO 650 mg Q4H PRN Administration Headache Albuterol 2 puff 03/15/21 14:32 Albuterol Sulfate (*Sp) Aerosol 1 Puff INHALATION Q6HRT PRN Shortness Of Breath Apixaban 5 mg 03/16/21 09:00 03/16/21 08:25 Apixaban 5 Mg Tablet PO 5 mg DAILY MAU Administration Bupropion HCl 150 mg 03/16/21 09:00 03/16/21 08:25 Bupropion Hcl Xl (24 Hr) 150 Mg Tabcr PO 150 mg DAILY MAU Administration Ferrous Sulfate 324 mg 03/16/21 09:00 03/16/21 08:25 Ferrous Sulfate 324 Mg Tablet PO 324 mg DAILY MAU Administration Ceftriaxone Sodium/Dextrose 1 gm in 50 m
[2021-03-16 19:11] LABS: SARS-CoV-2 RNA PCR Negative
[2021-03-17 06:00] VITALS: BP 155/74; PULSE 64; RESP 20; TEMP 36.3; O2SAT 95
[2021-03-17] MEDS: SODIUM CHLORIDE 0.9% IV 1,000 ML 100 ML IV CONT (07:49)
[2021-03-17 09:51] VITALS: PULSE 64
[2021-03-17] MEDS: FERROUS SULFATE 324 MG TABLET PO (09:51)
[2021-03-17] MEDS: buPROPion HCL XL (24 HR) 150 MG TABCR PO (09:51)
[2021-03-17] MEDS: METOPROLOL TARTRATE 25 MG TABLET PO (09:51)
[2021-03-17] MEDS: APIXABAN 5 MG TABLET PO (09:51)
[2021-03-17] MEDS: lisinopriL 20 MG TABLET PO (09:52)
[2021-03-17] MEDS: SIMVASTATIN 20 MG TABLET PO (09:52)
[2021-03-17 10:00] VITALS: BP 146/62; PULSE 58; RESP 18; TEMP 36.6; O2SAT 100
--- NOTE | 2021-03-17 10:48 | PM.DS ---
DS: Admitting Diagnosis Admitting Diagnosis Admitting Diagnosis: fever and shortness of breath DS: Discharge Diagnosis Discharge Diagnosis (1) History of hypertension: Code(s): Z86.79 - Personal history of other diseases of the circulatory system Status: Chronic (2) History of hyperlipidemia: Code(s): Z86.39 - Personal history of other endocrine, nutritional and metabolic disease Status: Chronic (3) Community acquired pneumonia: Code(s): J18.9 - Pneumonia, unspecified organism Status: Acute (4) COVID-19 ruled out: Code(s): Z20.822 - Contact with and (suspected) exposure to COVID-19 Status: Acute (5) Paroxysmal atrial flutter: Code(s): I48.92 - Unspecified atrial flutter Status: Chronic (6) Acute UTI: Code(s): N39.0 - Urinary tract infection, site not specified Status: Acute DS: Summary Hospital Course Hospital Course: The patient came to the emergency room with shortness of breath. The patient developed a low-grade fever of 99.5 on 03/15/2021. She had a nonproductive cough. She has some nausea and vomiting. The patient had 1 COVID vaccine but did not get her 2nd COVID vaccine. WBCs 11.6. lactic acid was 2.4 and 2.9. Calcium 10.4. UA trace leuko side history is WBCs 10-15 many squamous cell. 2+ urine bacteria. Patient was started on Rocephin and azithromycin. Chest x-ray was read as small patchy bilateral mid and lower lung opacities could be infection or atelectasis. CTA was read as No pulmonary embolism. Acute left lung disease, consistent with pneumonia, chronic interstitial lung disease in a pattern of nonspecific interstitial pneumonia. Large sliding hiatal hernia. She was admitted under observation. she remained afebrile throughout her hospital stay. She was swabbed for suspected COVID pneumonia however came back negative. she was continued on her ceftriaxone and azithromycin during her hospitalization. She improved significantly. Her cultures were all negative. She received total 1.5 g of azithromycin while in the hospital will switch to ceftriaxone to Ceftin at the time of discharge. She is advised to follow-up with her PCP in a week. With her CT readings of chronic interstitial lung disease in the pattern of nonspecific interstitial pneumonia, she is advised to follow-up with her granulator tender Dr. Govea from [facility]. For rest of her chronic medical conditions which are proximal atrial fibrillation, hypertension, hyperlipidemia, anxiety depression her regular home medications were continued during the hospital stay. Status at Discharge Functional status at discharge: independent ambulation Overall status at discharge: patient is progressing back to baseline Time Spent with Patient Time attestation: Total time spent providing and/or coordinating discharge services: 40 minutes Exam Narrative: Exam Narrative: Const: General: no acute distress, alert and awake Orientation/consciousness: patient oriented x3 HENMT: Head: normocephalic and atraumatic Ears: hearing grossly normal bilaterally and external ears normal Face and sinus: face symmetric Mouth: Yes Normal oral and palatal mucosa present Eyes: EOM: EOMs intact bilaterally Neck: Neck: full ROM, trachea midline and no JVD Chest: Chest palpation & inspection: normal inspection of the chest Resp: Effort & Inspection: normal respiratory effort Cardio: Jugular venous distension: no JVD GI: Inspection: normal to inspection Back/Spine/Pelvis: Back: no CVA tenderness Skin: General skin exam: normal color Neuro: General: patient oriented x3 and CN's II-XI intact bilaterally Speech: normal speech Psych: Appearance: grossly normal Affect: normal affect Judgement: Good judgement present (Psych) DS: Data Data Completed and Pending Labs on day of discharge: Labs from last 24 hours 03/15/21 14:55 SARS-CoV-2 RNA (RT-PCR) Negative Preliminary yolette
[2021-03-17] MEDS: AZITHROMYCIN 250 MG TABLET 500 MG PO (12:00)
== END 2021-03-17 12:38 | disposition home or self-care (01) ==
LOC: ANHED 14:48 → ANH3MEDSUR 15:29
PROVIDERS: Emergency Medicine; Admitting Provider Internal Medicine; Emergency Provider Emergency Medicine; PCP Internal Medicine; Visit Provider Internal Medicine
DX: J18.9 Pneumonia, unspecified organism (principal); N39.0 Urinary tract infection, site not specified; R06.02 Shortness of breath; I35.0 Nonrheumatic aortic (valve) stenosis; I10 Essential (primary) hypertension; E78.5 Hyperlipidemia, unspecified; I48.92 Unspecified atrial flutter; K44.9 Diaphragmatic hernia without obstruction or gangrene; F41.8 Other specified anxiety disorders; I27.20 Pulmonary hypertension, unspecified; Z79.01 Long term (current) use of anticoagulants; Z86.73 Personal history of transient ischemic attack (TIA), and cerebral infarction without residual deficits; Z87.891 Personal history of nicotine dependence; Z20.822 Contact with and (suspected) exposure to COVID-19
CPT/HCPCS: 36415; 71045; 71275; 80053; 81001; 83605; 83690; 83880; 84484; 85025; 85380; 85610; 85730; 87040; 87086; 87088; 93005; 96361; 96365; 96366; 96375; 99285; A9270; C9803; G0378; J0456; J0696; J7030; J7060; Q9967; U0003; U0005

== ENCOUNTER 2022-03-14 19:22 | Emergency (ER) | payer MEDICARE, SELFPAY ==
[2022-03-14 19:25] VITALS: BP 182/92; PULSE 66; RESP 18; TEMP 36.5; O2SAT 97
--- NOTE | 2022-03-14 19:32 | ECG_ITS ---
Measurements Intervals [place] Rate: 60 P: 30 MS: 221 QRS: -33 QRSD: 89 T: 74 QT: 419 QTc: 422 Interpretive Statements SINUS RHYTHM WITH FIRST DEGREE AV BLOCK LEFT AXIS DEVIATION LEFT VENTRICULAR HYPERTROPHY WITH ST-T CHANGE ABNORMAL ECG Electronically Signed On 03-14-2022 20:57:32 CDT by Kash Butler D.O.
[2022-03-14 19:45] VITALS: BP 163/89; PULSE 67; RESP 18; O2SAT 97
[2022-03-14 19:59] VITALS: BP 163/89; PULSE 63; RESP 20; TEMP 36.6; O2SAT 97
--- NOTE | 2022-03-14 20:29 | ED.GENADULT ---
HPI - General Adult General Chief complaint: Headache Stated complaint: htn Time Seen by Provider: 03/14/22 19:42 History of Present Illness HPI narrative: Patient is a 77-year-old female who presents ER with just feeling off. Patient reports that she was at her primary care doctor's office today and her blood pressure was in the 230s. She increased her lisinopril and start amlodipine. She had been feeling off however for 2 days. She is unsure what that means. She then started a bowel prep today and has been having diarrhea and abdominal bloating. No vomiting. No fevers or chills or sweats. No chest pain or chest pressure. Patient on her way here reported having some throbbing frontal headache that is now gone. Related Data Home Medications Medication Instructions Recorded Confirmed lisinopril 20 mg tablet 20 mg PO DAILY 07/25/19 03/15/21 simvastatin 20 mg tablet 20 mg PO DAILY 07/25/19 03/15/21 apixaban 5 mg tablet (Eliquis) 5 mg PO DAILY 11/24/19 03/15/21 bupropion HCl 150 mg 24 hr tablet, 150 mg PO DAILY 03/15/21 03/15/21 extended release ferrous sulfate 325 mg (65 mg 325 mg PO DAILY 03/15/21 03/15/21 iron) tablet Allergies Allergy/AdvReac Type Severity Reaction Status Date / Time No Known Allergies Allergy Verified 03/14/22 20:05 Review of Systems Review of Systems: All systems reviewed & are unremarkable except as noted in HPI and below Constitutional: Constitutional: Denies chills and Denies fever(s) ENT: Denies nasal congestion and Denies sore throat Cardiovascular: Cardiovascular: Denies chest pain, Denies rapid heart rate and Denies radiating jaw, neck or arm pain Respiratory: Respiratory: Denies cough, Denies dyspnea and Denies wheezing Gastrointestinal: Gastrointestinal: Denies abdominal pain, Reports bloating, Reports diarrhea, Reports nausea and Denies vomiting Neurologic: Denies syncope, Reports headache(s), Denies focal weakness and Denies numbness PMF Past Medical History Medical History (Updated 03/14/22 @ 20:38 by Asael Orellana MD) Aortic stenosis Echocardiogram May 2019 1. The left ventricle has normal size with moderate concentric left ventricular hypertrophy. Overall the left ventricular function is good, EF 55-60% visually. 2. Right atrial chamber dimension is mildly enlarged. 3. Left atrial chamber dimension is mildly enlarged. 4. Right ventricular chamber dimension is mildly enlarged with normal systolic function. 5. There is mild aortic valve stenosis with a peak velocity of 221 cm/s, mean gradient of 9 mmHg, and aortic valve area of 2.1 cm2. 6. Mild pulmonary hypertension, estimated pulmonary arterial systolic pressure is 41 mmHg. 7. There is mild aortic atherosclerosis. 8. Atrial fibrillation versus flutter. 9. Technically difficult study. Depression Dyslipidemia Esophageal ulcer Approximately 15 years ago Essential hypertension History of hyperlipidemia History of hypertension Overflow stress urinary incontinence in female Paroxysmal atrial flutter Diagnosed July 2019 Pneumonia Treated as outpatient July 2015 and January 2018, was admitted as inpatient July 2019 Pulmonary hypertension Mild on echocardiogram from May 2019 with RVSP 41 Shingles Superficial phlebitis TIA (transient ischemic attack) Surgical History Surgical History History of appendectomy History of tonsillectomy Status post cataract extraction of both eyes with insertion of intraocular lens Family History Family History Mother Breast cancer She of old age at 90 years old Son Pulmonary embolism He in his 50's. Father Pneumonia in his 90's with pneumonia. Social History Social History Social History: The patient r
--- NOTE | 2022-03-14 20:31 | PC.NURSE ---
2030-WHILE PREPARING TO OBTAIN LABS AND START IV, PATIENT STATES SHE WANTS TO GO HOME. PATIENT STATES SHE FEELS FINE AND WANTS TO ENSURE SHE GETS HER COLONOSCOPY COMPLETED TOMORROW. ERP ADVISED AND STATES TO SIGN PATIENT OUT AMA.
== END 2022-03-14 20:33 | disposition left against medical advice (07) ==
LOC: ANHED 20:43
PROVIDERS: Emergency Provider Emergency Medicine
DX: I10 Essential (primary) hypertension (principal); R51.9 Headache, unspecified; I35.0 Nonrheumatic aortic (valve) stenosis; E78.5 Hyperlipidemia, unspecified; I48.92 Unspecified atrial flutter; Z87.01 Personal history of pneumonia (recurrent); I27.20 Pulmonary hypertension, unspecified; Z86.73 Personal history of transient ischemic attack (TIA), and cerebral infarction without residual deficits; Z98.42 Cataract extraction status, left eye; Z98.41 Cataract extraction status, right eye; Z96.1 Presence of intraocular lens; Z87.891 Personal history of nicotine dependence; Z79.01 Long term (current) use of anticoagulants; I44.0 Atrioventricular block, first degree; I51.7 Cardiomegaly
CPT/HCPCS: 93005; 99283

== ENCOUNTER 2023-01-05 20:05 | Observation (INO) | payer MEDICARE, SELFPAY ==
--- NOTE | ~2023-01-05 | XR_ITS ---
EXAMINATION: XR chest 2V DATE: 01/05/2023 20:43 INDICATION: Shortness of breath. Hypertension. TECHNIQUE: Frontal and lateral views of the chest were obtained. COMPARISON: Chest single view 03/15/2021, chest CT 03/15/2021 FINDINGS: There is a large hiatal hernia. There are airspace and interstitial opacities in lower lung zones. No pleural effusion or pneumothorax. Cardiomegaly is noted. IMPRESSION: 1. Airspace and interstitial opacities in the lower lung zones, consistent with chronic interstitial lung disease with superimposed atelectasis versus pneumonia. 2. Large hiatal hernia. 3. Cardiomegaly. Reviewed, dictated and finalized at location A. IMPRESSION: 1. Airspace and interstitial opacities in the lower lung zones, consistent with chronic interstitial lung disease with superimposed atelectasis versus pneumon ia. 2. Large hiatal hernia. 3. Cardiomegaly.
[2023-01-05 20:10] VITALS: BP 175/79; PULSE 64; RESP 16; TEMP 36.6; O2SAT 96
--- NOTE | 2023-01-05 20:11 | ECG_ITS ---
Measurements Intervals [place] Rate: 60 P: 18 [place]: 235 QRS: -33 QRSD: 92 T: 79 QT: 433 QTc: 433 Interpretive Statements SINUS RHYTHM WITH FIRST DEGREE AV BLOCK LEFT AXIS DEVIATION DELAYED PRECORDIAL R/S TRANSITION EFT VENTRICULAR HYPERTROPHY AND ST-T CHANGE BASELINE ARTIFACT- I, III, AVR, AVL, V5 BORDERLINE ECG COMPARED TO ECG 03/14/2022 19:37:49 NO SIGNIFICANT CHANGES Electronically Signed On 01-05-2023 21:25:49 CDT by Kash Butler D.O.
[2023-01-05 20:28] LABS: Basophils Percent Auto 0.7 % (0.2-1.2); Eosinophils Percent Auto 0.9 % (0-4.4); Hematocrit 43.8 % (37.0-47.0); Hemoglobin 14.8 g/dL (12.0-15.0); Immature Granulocyte Absolute 0.01 K/mm3 (0.00-0.031); Immature Granulocyte Percent A 0.2 % (0-0.5); Lymphocytes Absolute Auto 1.79 K/mm3 (0.9-3.2); Lymphocytes Percent Auto 39.8 % (18.3-44.2); Mean Corpuscular HGB Conc 33.8 g/dl (32-36); Mean Corpuscular Hemoglobin 32.2 pg (26-34); Mean Corpuscular Volume 95.2 fl (80-100); Mean Platelet Volume 9.8 fl (7.4-10.4); Monocytes Absolute Auto 0.4 K/mm3 (0.1-0.6); Monocytes Percent Auto 9.3 % (2.6-8.5); Neutrophils Absolute Auto 2.2 K/mm3 (1.3-6.7); Neutrophils Percent Auto 49.1 % (45.5-73.1); Platelet Count Result 161 k/mm3 (150-375); White Blood Count 4.5 K/mm3 (4.5-10.0)
[2023-01-05 20:38] LABS: Alanine Aminotransferase 27 U/L (6-35); Albumin Level 4.5 g/dL (3.5-5.1); Alkaline Phosphatase 64 U/L (38-126); Anion Gap 10 mmol/L (8-16); Aspartate Amino Transferase 37 U/L (14-36); Blood Urea Nitrogen 12 mg/dL (7-17); Calcium 9.2 mg/dL (8.4-10.2); Carbon Dioxide 24 mmol/L (22-30); Chloride 106 mmol/L (98-107); Estimated CRCL calculation 72 ml/min; Estimated Glomerular Filt Rate > 60; Glucose 98 mg/dL (65-110); Potassium 3.7 mmol/L (3.4-5.0); Sodium 140 mmol/L (137-145)
[2023-01-05 20:39] LABS: INR 1.1; Prothrombin Time 14.3 Seconds (11.1-14.7)
[2023-01-05 20:40] LABS: Partial Thromboplastin Time 31.3 SECONDS (22.3-36.8)
[2023-01-05 20:50] LABS: NT Pro B Type Natriuretic Pept 412 pg/mL (19.9-100); Troponin I < 0.012 ng/mL (0.000-0.034)
--- NOTE | 2023-01-05 22:06 | PM.IMHP ---
H&P: HPI History of Present Illness Date/Time: 01/05/23 22:06 Chief Complaint: Shortness of breath Narrative: This is a 77-year-old female with past medical history significant for generalized anxiety disorder, hypertension, patient on chronic anticoagulation, paroxysmal atrial flutter. Patient presents to the emergency room due to shortness of breath at exertion and bilateral lower extremity swelling this has been ongoing for the last week or so, patient denies any fevers, rigors, chills, nausea, vomiting, chest pain, palpitations, epigastric pain, dizziness, syncope, near syncope, lightheadedness. Patient had been having problems controlling her blood pressure was that has been on the high side her primary care physician and was adjusting her meds with no success, in emergency room patient was noted to have systolic blood pressure in the 170's range. Preliminary workup is significant for chest x-ray with infiltrates. EXAMINATION: XR chest 2V DATE: 01/05/2023 20:43 INDICATION: Shortness of breath. Hypertension. TECHNIQUE: Frontal and lateral views of the chest were obtained. COMPARISON: Chest single view 03/15/2021, chest CT 03/15/2021 FINDINGS: There is a large hiatal hernia. There are airspace and interstitial opacities in lower lung zones. No pleural effusion or pneumothorax. Cardiomegaly is noted. IMPRESSION: 1. Airspace and interstitial opacities in the lower lung zones, consistent with chronic interstitial lung disease with superimposed atelectasis versus pneumonia. 2. Large hiatal hernia. 3. Cardiomegaly. Patient is been admitted for further evaluation management and treatment. Review of Systems Review of Systems: Shortness of breath, bilateral lower extremity edema Constitutional: Constitutional: Denies chills, Reports fatigue, Denies fever(s), Reports lethargy, Denies malaise, Denies night sweats, Denies poor appetite and Denies weakness Eyes: Eyes: Denies change in vision Cardiovascular: Cardiovascular: Denies chest pain, Reports leg edema, Reports dyspnea on exertion and Reports orthopnea Respiratory: Respiratory: Denies chest congestion, Denies cough and Denies excessive phlegm production Gastrointestinal: Gastrointestinal: Denies abdominal pain, Denies dyspepsia, Denies heartburn, Denies diarrhea, Denies nausea and Denies vomiting Genitourinary: Genitourinary: Denies dysuria Musculoskeletal: Musculoskeletal: Denies back pain, Denies joint swelling and Denies muscle weakness Integumentary/Breasts: Skin/Breast: Denies rash Neurologic: Denies focal weakness and Denies Sensory deficit (Neuro) Psychiatric: Psychiatric: Reports no additional psychiatric complaints and Reports as per HPI Endocrine: Endocrine: Denies cold intolerance, Denies flushing, Denies heat intolerance, Denies polyphagia, Denies polydipsia and Denies palpitations Hematologic/Lymphatic: Hematologic/Lymphatic: Reports no additional hematologic/lymphatic complaints and Reports as per HPI Allergic/Immunologic: Allergic/Immunologic: Reports no additional allergic/immunologic complaints and Reports as per HPI [facility] Past Medical History Medical History Aortic stenosis Echocardiogram May 2019 1. The left ventricle has normal size with moderate concentric left ventricular hypertrophy. Overall the left ventricular function is good, EF 55-60% visually. 2. Right atrial chamber dimension is mildly enlarged. 3. Left atrial chamber dimension is mildly enlarged. 4. Right ventricular chamber dimension is mildly enlarged with normal systolic function. 5. There is mild aortic valve stenosis with a peak velocity of 221 cm/s, mean gradient of 9 mmHg, and aortic valve area of 2.1 cm2. 6. Mild pulmonary hypertension, estimated pulmonary arterial systolic pressure is 41 mmHg. 7. There is mild aortic atherosclerosis. 8. Atrial fibrillation versus flutter. 9. [employer]
[2023-01-05 22:15] VITALS: BP 173/79; O2SAT 98
--- NOTE | 2023-01-05 22:17 | ED.GENADULT ---
HPI - General Adult General Chief complaint: Recheck/Abnormal Lab/Rx Stated complaint: HTN, feet swelling Time Seen by Provider: 01/05/23 21:15 History of Present Illness HPI narrative: Patient is a 77-year-old female who presents the emergency department with chief complaint of peripheral edema and shortness of breath. The patient reports that she has been noticing her blood pressures been running high and reports that she has seen her primary doctor they adjusted her medications but blood pressure continues to increase been up in the 200s at home the patient states that she is having shortness of breath and also is noticed that she has been having swelling in her lower extremities. Patient reports that she is supposed to be taking Lasix but has not been taking it due to the increased urinary frequency whenever she takes the medication. Related Data Home Medications Medication Instructions Recorded Confirmed lisinopril 20 mg tablet 20 mg PO DAILY 07/25/19 03/15/21 simvastatin 20 mg tablet 20 mg PO DAILY 07/25/19 03/15/21 apixaban 5 mg tablet (Eliquis) 5 mg PO DAILY 11/24/19 03/15/21 bupropion HCl 150 mg 24 hr tablet, 150 mg PO DAILY 03/15/21 03/15/21 extended release ferrous sulfate 325 mg (65 mg 325 mg PO DAILY 03/15/21 03/15/21 iron) tablet Allergies Allergy/AdvReac Type Severity Reaction Status Date / Time No Known Allergies Allergy Verified 03/14/22 20:05 Review of Systems Review of Systems: A 10 system review of systems was completed on the patient and is negative except for what is stated in the HPI. Nursing and ancillary documentation was reviewed. [facility] Past Medical History Medical History Aortic stenosis Echocardiogram May 2019 1. The left ventricle has normal size with moderate concentric left ventricular hypertrophy. Overall the left ventricular function is good, EF 55-60% visually. 2. Right atrial chamber dimension is mildly enlarged. 3. Left atrial chamber dimension is mildly enlarged. 4. Right ventricular chamber dimension is mildly enlarged with normal systolic function. 5. There is mild aortic valve stenosis with a peak velocity of 221 cm/s, mean gradient of 9 mmHg, and aortic valve area of 2.1 cm2. 6. Mild pulmonary hypertension, estimated pulmonary arterial systolic pressure is 41 mmHg. 7. There is mild aortic atherosclerosis. 8. Atrial fibrillation versus flutter. 9. Technically difficult study. Depression Dyslipidemia Esophageal ulcer Approximately 15 years ago Essential hypertension History of hyperlipidemia History of hypertension Overflow stress urinary incontinence in female Paroxysmal atrial flutter Diagnosed July 2019 Pneumonia Treated as outpatient July 2015 and January 2018, was admitted as inpatient July 2019 Pulmonary hypertension Mild on echocardiogram from May 2019 with RVSP 41 Shingles Superficial phlebitis TIA (transient ischemic attack) Surgical History Surgical History History of appendectomy History of tonsillectomy Status post cataract extraction of both eyes with insertion of intraocular lens Family History Family History Mother Breast cancer She of old age at 90 years old Son Pulmonary embolism He in his 50's. Father Pneumonia in his 90's with pneumonia. Social History Social History Social History: The patient reports that she used to smoke 1 cigarette a day for about 10-15 years. Primary care physician: Dr. Nilay Stephen Code status: Full code. The patient does not have advanced directives in place. Years smoked: 20 Smoking status: Never smoker Tobacco type: cigarettes Second hand
[2023-01-05] MEDS: FUROSEMIDE INJ 40 MG/4 ML VIAL IV PUSH (22:33)
[2023-01-05 22:55] VITALS: BP 173/79; PULSE 64; RESP 18; O2SAT 97
[2023-01-05 23:30] VITALS: BP 142/91; PULSE 63; RESP 18; TEMP 36.1; O2SAT 97; BMI 36.0
--- NOTE | 2023-01-05 23:30 | ADMGEN ---
This patient, Mandi Ramirez, was admitted to [facility] Surg Room 311-01. Patient/family oriented to hospital policies and general routines including ID bracelet, bed and alarms, visiting hours, pain management, procedures, bathroom and other care routines, personal items, smoking policy, room service/diet, and visiting hours. Information on how to activate the Rapid Response Team has been discussed. Patient/Family are encouraged to report perceived risks to care and to ask questions if they do not understand what they are told or what they should do.
[2023-01-06] VITALS (9 sets, daily range): BP systolic 149–185; BP diastolic 70–92; PULSE 60–69; RESP 16–20; TEMP 35.9–36.3; O2SAT 95–98
[2023-01-06] MEDS: cefTRIAXone 2 GM/NS 100 ML 2 GM/100 ML BAG IVPB (04:32)
[2023-01-06] MEDS: FERROUS SULFATE 324 MG TABLET PO (09:29)
[2023-01-06] MEDS: buPROPion HCL XL (24 HR) 150 MG TABCR PO (09:29)
[2023-01-06] MEDS: METOPROLOL TARTRATE 25 MG TABLET PO ×2 (09:30→20:56)
[2023-01-06] MEDS: SIMVASTATIN 20 MG TABLET PO (09:30)
[2023-01-06] MEDS: OLMESARTAN MEDOXOMIL 20 MG TABLET 40 MG PO (09:30)
[2023-01-06] MEDS: APIXABAN 2.5 MG TABLET BY MOUTH ×2 (09:32→20:56)
[2023-01-06] MEDS: FUROSEMIDE INJ 40 MG/4 ML VIAL IV PUSH ×2 (09:32→20:56)
--- NOTE | 2023-01-06 10:18 | PM.IMPN ---
Progress Note: A&P Assessment and Plan (1) Edema, peripheral: Code(s): R60.9 - Edema, unspecified Status: Acute Assessment and Plan: Admit to med [facility] as needed Echocardiogram in a.m. (2) Hypertension: Qualifiers: Hypertension type: primary hypertension Qualified Code(s): I10 - Essential (primary) hypertension Code(s): I10 - Essential (primary) hypertension Status: Acute Assessment and Plan: Goal blood pressure 130/80 Resume home meds Continue to monitor (3) Paroxysmal atrial flutter: Code(s): I48.92 - Unspecified atrial flutter Status: Chronic Assessment and Plan: Continue to monitor (4) Uncontrolled hypertension: Code(s): I10 - Essential (primary) hypertension Status: Acute Assessment and Plan: Resume home meds (5) Lung infiltrate: Code(s): R91.8 - Other nonspecific abnormal finding of lung field Status: Acute Assessment and Plan: Will start Rocephin and Zithromax Cultures in progress Subjective Date/time seen: 01/06/23 10:18 Interval history: Breathing better. Exam Narrative: Patient is laying in bed Const: General: comfortable, no acute distress, well developed, alert, awake, average body habitus and overweight Nutritional Appearance: average body habitus and overweight Orientation/consciousness: patient oriented x3 HENMT: Head: normal to inspection, normocephalic and atraumatic Ears: hearing grossly normal bilaterally Face/Nose/Sinus: normal facial exam Face and sinus: normal facial exam Eyes: General: appearance normal, both eyes and all related structures Pupils: Equal, round and reactive pupils present EOM: EOMs intact bilaterally Neck: Neck: full ROM, no lymphadenopathy and no JVD Thyroid: thyroid normal Lymphatic: no lymphadenopathy noted Resp: Effort & Inspection: normal respiratory effort and able to speak in complete sentences Auscultation: clear to auscultation bilaterally Cardio: Jugular venous distension: no JVD Rate: regular rate Rhythm: regular rhythm Heart sounds: S1 normal heart sound present and S2 normal heart sound present : General: Yes deferred Skin: Rashes: no rashes Wounds: no wounds Neuro: General: patient oriented x3 and CN's II-XI intact bilaterally Cranial nerves: Yes CN's II-XII intact bilaterally and Yes Equal, round and reactive pupils present Cognition (Neuro): normal cognition Speech: normal speech Gait exam (Neuro): Normal gait present Motor exam (neuro): 5/5 motor strength present throughout Sensory Exam: No Sensory deficit (Neuro) Extrem: General: full ROM, no joint enlargement and edema Objective Data Vital Signs Vital Signs: Vital Signs - 24 hr 01/05/23 20:10 01/05/23 22:15 01/05/23 22:55 Temperature 97.9 F Pulse Rate 64 64 Respiratory Rate 16 18 Blood Pressure 175/79 H 173/79 H 173/79 H Pulse Oximetry 96 98 97 Oxygen Delivery Room Air 01/05/23 23:30 01/06/23 00:00 01/06/23 04:00 Temperature 96.9 F L Pulse Rate 63 69 65 Respiratory Rate 18 Blood Pressure 142/91 H Pulse Oximetry 97 Oxygen Delivery 01/06/23 06:00 01/06/23 09:30 Temperature 96.6 F L Pulse Rate 67 68 Respiratory Rate 18 Blood Pressure 185/90 H Pulse Oximetry 95 Oxygen Delivery Intake/Output Intake/Output: Intake & Output 01/03/23 01/04/23 01/05/23 01/06/23 23:59 23:59 23:59 23:59 Intake Total 580 Output Total 2200 Balance -1620 Meds/Results Medications: Active Medications Generic Name Dose Route Start Last Admin Trade Name Alejandra PRN Reason Stop Dose Admin Apixaban 2.5 mg 01/06/23 09:00 01/06/23 09:32 Apixaban 2.5 Mg Tablet BY MOUTH 2.5 mg Q12HR MAU Administration Bupropion HCl 150 mg 01/06/23 09:00 01/06/23 09:29 Bupropion Hcl Xl (24 Hr) 150 Mg Tabcr PO 150 mg DAILY MAU Administration Ferrous Sulfate 324 mg 01/06/23 08:00 01/06/23 09:29 Ferrous Zuñiga
[2023-01-06] MEDS: lisinopriL 20 MG TABLET 40 MG PO (18:00)
[2023-01-06] MEDS: CALCIUM CARBONATE (TUMS) 500 MG (200 MG ELEMENTAL) PO (20:56)
[2023-01-06] MEDS: GABAPENTIN 300 MG CAPSULE PO (20:56)
--- NOTE | 2023-01-07 | ECHO_ITS ---
Patient Info Name: Mandi Ramirez Age: 77 years : 1945 Gender: Female Ht: 66 in Wt: 226 lbs BSA: 2.23 m2 HR: 66 bpm BP: 142 / 64 mmHg Technical Quality: Fair Exam Date: 01/07/2023 9:47 AM Exam Location: [facility] Pulmonary Patient Status: Inpatient Admit Date: 01/05/2023 Staff Ordering Physician: Evan Stone MD Ginning Operator: Christina Taylor RDCS Attending Provider: Grabiel Sanchez MD Referring Physician: Chase GOMEZ; Exam Type: CA echo dop color flow w con Study Info Indications I50.9 - Heart failure, unspecified Complete two-dimensional, color flow and Doppler transthoracic echocardiogram is performed with contrast to opacify the left ventricle and to improve the deliniation of the left ventricle endocardial borders. Contrast/Agitated Saline Contrast/Ag. Saline: Definity Amount: 3.00 ml Administered By: Christina Taylor RDCS Existing IV Access: Yes IV Access Condition: patent with no signs of infiltration Summary 1. Definity contrast administered improved wall motion interpretation. 2. Ventricular septum is sigmoid shaped. No LVOT obstruction. 3. Left ventricular chamber dimension is normal. 4. Left ventricular systolic function is hyperdynamic, estimated at >70%. 5. There is mild concentric increased left ventricular wall thickness. 6. The left ventricular diastolic function is grade I diastolic dysfunction. 7. E/e' 18 is elevated. 8. Left atrial chamber dimension is mildly enlarged. 9. There is severe aortic valve sclerosis. 10. There is moderate aortic valve stenosis with a peak velocity of 358.75 cm/s, mean gradient of 29 mmHg, and aortic valve area of 1.24 cm2. 11. The mitral valve has moderately calcified annulus. 12. No pulmonary hypertension, estimated pulmonary arterial systolic pressure is 34 mmHg. Left Ventricle E/e' 18 is elevated. Ventricular septum is sigmoid shaped. No LVOT obstruction. Definity contrast administered improved wall motion interpretation. Left ventricular chamber dimension is normal. Left ventricular systolic function is hyperdynamic, estimated at >70%. There is mild concentric increased left ventricular wall thickness. The left ventricular diastolic function is grade I diastolic dysfunction. Right Ventricle Right ventricular chamber dimension is normal. Right ventricular systolic function is normal. Left Atria Left atrial chamber dimension is mildly enlarged. Aortic Valve The aortic valve is trileaflet. There is severe aortic valve sclerosis. There is moderate aortic valve stenosis with a peak velocity of 358.75 cm/s, mean gradient of 29 mmHg, and aortic valve area of 1.24 cm2. There is no aortic valve regurgitation. Pulmonic Valve There is no pulmonic regurgitation. Mitral Valve The mitral valve has moderately calcified annulus. There is no mitral valve stenosis. There is no mitral valve regurgitation. Tricuspid Valve There is no tricuspid valve regurgitation. No pulmonary hypertension, estimated pulmonary arterial systolic pressure is 34 mmHg. Pericardium/Pleural There is no pericardial effusion. Inferior Vena Cava Normal inferior vena cava with >50% collapse upon inspiration consistent with normal right atrial pressure, 5 mmHg. Aorta The aortic root size at the sinus of Valsalva is normal. Left Ventricular Outflow Tract Name Value Normal LVOT 2D
[2023-01-07 04:45] VITALS: BP 142/64; PULSE 61; RESP 16; TEMP 35.7; O2SAT 96
[2023-01-07 06:52] LABS: Anion Gap 10 mmol/L (8-16); Blood Urea Nitrogen 18 mg/dL (7-17); Calcium 9.5 mg/dL (8.4-10.2); Carbon Dioxide 29 mmol/L (22-30); Chloride 99 mmol/L (98-107); Estimated CRCL calculation 72 ml/min; Estimated Glomerular Filt Rate > 60; Glucose 112 mg/dL (65-110); Potassium 3.3 mmol/L (3.4-5.0); Sodium 138 mmol/L (137-145)
[2023-01-07] MEDS: FERROUS SULFATE 324 MG TABLET PO (08:53)
[2023-01-07] MEDS: APIXABAN 2.5 MG TABLET BY MOUTH (08:54)
[2023-01-07] MEDS: POTASSIUM CHLORIDE 20 MEQ TABLET PO (08:54)
[2023-01-07] MEDS: buPROPion HCL XL (24 HR) 150 MG TABCR PO (08:55)
[2023-01-07] MEDS: SIMVASTATIN 20 MG TABLET PO (08:55)
[2023-01-07] MEDS: OLMESARTAN MEDOXOMIL 20 MG TABLET 40 MG PO (08:55)
[2023-01-07] MEDS: lisinopriL 20 MG TABLET 40 MG PO (08:55)
[2023-01-07 08:56] VITALS: PULSE 65
[2023-01-07] MEDS: METOPROLOL TARTRATE 25 MG TABLET PO (08:56)
[2023-01-07] MEDS: FUROSEMIDE INJ 40 MG/4 ML VIAL IV PUSH (08:58)
[2023-01-07] MEDS: cefTRIAXone 2 GM/NS 100 ML 2 GM/100 ML BAG IVPB (08:59)
[2023-01-07] MEDS: PERFLUTREN LIPID MICROSPHERES 1.5 ML VIAL DILUTED TO 10 ML TOTAL VOLUME IV PUSH (10:35)
--- NOTE | 2023-01-07 12:20 | PM.DS ---
DS: Admitting Diagnosis Discharge Date January 07, 2023 Admitting Diagnosis pneumonia DS: Discharge Diagnosis Discharge Diagnosis (1) Edema, peripheral: Code(s): R60.9 - Edema, unspecified Status: Acute Assessment and Plan: Admit to med tele Diurese as needed Echocardiogram in a.m. (2) Hypertension: Qualifiers: Hypertension type: primary hypertension Qualified Code(s): I10 - Essential (primary) hypertension Code(s): I10 - Essential (primary) hypertension Status: Acute Assessment and Plan: Goal blood pressure 130/80 Resume home meds Continue to monitor (3) Paroxysmal atrial flutter: Code(s): I48.92 - Unspecified atrial flutter Status: Chronic Assessment and Plan: Continue to monitor (4) Uncontrolled hypertension: Code(s): I10 - Essential (primary) hypertension Status: Acute Assessment and Plan: Resume home meds (5) Lung infiltrate: Code(s): R91.8 - Other nonspecific abnormal finding of lung field Status: Acute Assessment and Plan: Will start Rocephin and Zithromax Cultures in progress DS: Summary Hospital Course Hospital Course: admitted for shortness of breath found to have pneumonia. Antibiotics were initiated patient's respiratory status improved significantly. She currently is not requiring any oxygen and is ambulating around her room. She can be discharged follow-up primary care physician Time Spent with Patient Time attestation: Total time spent providing and/or coordinating discharge services: Exam Narrative: Patient is laying in bed Const: General: comfortable, no acute distress, well developed, alert, awake, average body habitus and overweight Nutritional Appearance: average body habitus and overweight Orientation/consciousness: patient oriented x3 HENMT: Head: normal to inspection, normocephalic and atraumatic Ears: hearing grossly normal bilaterally Face/Nose/Sinus: normal facial exam Face and sinus: normal facial exam Eyes: General: appearance normal, both eyes and all related structures Pupils: Equal, round and reactive pupils present EOM: EOMs intact bilaterally Neck: Neck: full ROM, no lymphadenopathy and no JVD Thyroid: thyroid normal Lymphatic: no lymphadenopathy noted Resp: Effort & Inspection: normal respiratory effort and able to speak in complete sentences Auscultation: clear to auscultation bilaterally Cardio: Jugular venous distension: no JVD Rate: regular rate Rhythm: regular rhythm Heart sounds: S1 normal heart sound present and S2 normal heart sound present : General: Yes deferred Skin: Rashes: no rashes Wounds: no wounds Neuro: General: patient oriented x3 and CN's II-XI intact bilaterally Cranial nerves: Yes CN's II-XII intact bilaterally and Yes Equal, round and reactive pupils present Cognition (Neuro): normal cognition Speech: normal speech Gait exam (Neuro): Normal gait present Motor exam (neuro): 5/5 motor strength present throughout Sensory Exam: No Sensory deficit (Neuro) Extrem: General: full ROM, no joint enlargement and edema DS: Data Data Completed and Pending Labs on day of discharge: Labs from last 24 hours 01/07/23 06:07 Sodium 138 Potassium 3.3 L Chloride 99 Carbon Dioxide 29 Anion Gap 10 BUN 18 H Creatinine 0.70 Estim Creat Clear Calc 72 Estimated GFR > 60 Glucose 112 H Calcium 9.5 Preliminary micro results at discharge 01/06/23 05:59 Blood Culture - Preliminary Blood 01/06/23 05:59 Blood Culture - Preliminary Blood Discharge Plan Discharge Attending physician on discharge: Evan Stone Discharging Clinician: Evan Stone Patient Disposition: Home, Self-Care Activity: no preference Diet: as tolerated Patient Instructions: Antibiotic Form, Apixaban (By mouth), Pain Management (DC) Stand Alone Forms: General Discharge Information Follow-up/Ref
== END 2023-01-07 14:40 | disposition home or self-care (01) ==
LOC: ANHED 22:20 → ANH3MEDSUR 01-06 00:06
PROVIDERS: Emergency Medicine; Admitting Provider Internal Medicine; Emergency Provider Emergency Medicine; Visit Provider Chiropractor
DX: R60.0 Localized edema (principal); I11.9 Hypertensive heart disease without heart failure; R06.00 Dyspnea, unspecified; K44.9 Diaphragmatic hernia without obstruction or gangrene; I48.92 Unspecified atrial flutter; R91.8 Other nonspecific abnormal finding of lung field; I35.0 Nonrheumatic aortic (valve) stenosis; I34.81 Nonrheumatic mitral (valve) annulus calcification; F41.9 Anxiety disorder, unspecified; R35.0 Frequency of micturition; F32.A Depression, unspecified; E78.5 Hyperlipidemia, unspecified; F10.90 Alcohol use, unspecified, uncomplicated; Z86.73 Personal history of transient ischemic attack (TIA), and cerebral infarction without residual deficits; Z87.891 Personal history of nicotine dependence; Z79.01 Long term (current) use of anticoagulants; Z79.899 Other long term (current) drug therapy
CPT/HCPCS: 36415; 71046; 80048; 80053; 83880; 84484; 85025; 85610; 85730; 87040; 93005; 96365; 96366; 96367; 96375; 96376; 99285; A9270; C8929; G0378; J0456; J0696; J1940; Q9957

== ENCOUNTER 2023-07-07 15:26 | Emergency (ER) | payer MEDICARE, SELFPAY ==
--- NOTE | ~2023-07-07 | XR_ITS ---
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 RESULT: Lines, tubes, and devices: None. Lungs and pleura: Chronic interstitial changes. No focal consolidation. Bibasilar scar/atelectasis. Cardiomediastinal silhouette: Stable. Moderate hiatal hernia Other: No acute osseous or upper abdominal finding. IMPRESSION: No acute cardiopulmonary process. Reviewed, dictated and finalized at location K. LE ASSEMBLER
[2023-07-07 15:29] VITALS: BP 161/93; PULSE 137; RESP 17; TEMP 36.9; O2SAT 95
--- NOTE | 2023-07-07 15:31 | ECG_ITS ---
Measurements Intervals Burt Rate: 114 P: [place]: 0 QRS: -36 QRSD: 87 T: 83 QT: 314 QTc: 433 Interpretive Statements SINUS TACHYCARDIA WITH INTERMITTENT TRANSIENT ATRIAL TACHYCARDIA LEFT AXIS DEVIATION LEFT VENTRICULAR HYPERTROPHY WITH ST-T CHANGE BASELINE ARTIFACT- I, II, III, AVL, V6 ABNORMAL ECG COMPARED TO ECG 01/05/2023 20:24:52 SINUS TACHYCARDIA WITH INTERMITTENT TRANSIENT ATRIAL TACHYCARDIA NOW PRESENT Electronically Signed On 07-07-2023 16:32:57 MANIFOLD OPERATOR by Kash Butler D.O.
--- NOTE | 2023-07-07 15:44 | ED.GENADULT ---
HPI - General Adult General Chief complaint: Upper Respiratory Infection Stated complaint: sick for 7 days History of Present Illness HPI narrative: Mandi Ramirez is a 78 y/o female who presents with reports of being sick for a week with body aches severe joint pain / congestion/ productive cough of yellow /fever chills. Denies nausea/vomiting /abdominal pain Related Data Home Medications Medication Instructions Recorded Confirmed simvastatin 20 mg tablet 20 mg PO DAILY 07/25/19 01/06/23 apixaban 5 mg tablet (Eliquis) 5 mg PO DAILY 11/24/19 01/06/23 bupropion HCl 150 mg 24 hr tablet, 150 mg PO DAILY 03/15/21 01/06/23 extended release ferrous sulfate 325 mg (65 mg 325 mg PO DAILY 03/15/21 01/06/23 iron) tablet gabapentin 300 mg capsule 300 mg PO HS 01/06/23 01/06/23 lisinopril 40 mg tablet 40 mg PO DAILY 01/06/23 01/06/23 olmesartan 40 mg tablet 40 mg PO DAILY 01/06/23 01/06/23 omeprazole 20 mg PO DAILY heartburn 01/07/23 01/07/23 Allergies Allergy/AdvReac Type Severity Reaction Status Date / Time No Known Allergies Allergy Verified 03/14/22 20:05 [facility] Past Medical History Medical History Aortic stenosis Echocardiogram May 2019 1. The left ventricle has normal size with moderate concentric left ventricular hypertrophy. Overall the left ventricular function is good, EF 55-60% visually. 2. Right atrial chamber dimension is mildly enlarged. 3. Left atrial chamber dimension is mildly enlarged. 4. Right ventricular chamber dimension is mildly enlarged with normal systolic function. 5. There is mild aortic valve stenosis with a peak velocity of 221 cm/s, mean gradient of 9 mmHg, and aortic valve area of 2.1 cm2. 6. Mild pulmonary hypertension, estimated pulmonary arterial systolic pressure is 41 mmHg. 7. There is mild aortic atherosclerosis. 8. Atrial fibrillation versus flutter. 9. Technically difficult study. Depression Dyslipidemia Esophageal ulcer Approximately 15 years ago Essential hypertension History of hyperlipidemia History of hypertension Overflow stress urinary incontinence in female Paroxysmal atrial flutter Diagnosed July 2019 Pneumonia Treated as outpatient July 2015 and January 2018, was admitted as inpatient July 2019 Pulmonary hypertension Mild on echocardiogram from May 2019 with RVSP 41 Shingles Superficial phlebitis TIA (transient ischemic attack) Surgical History Surgical History History of appendectomy History of tonsillectomy Status post cataract extraction of both eyes with insertion of intraocular lens Family History Family History Mother Breast cancer She of old age at 90 years old Son Pulmonary embolism He in his 50's. Father Pneumonia in his 90's with pneumonia. Social History Social History Social History: The patient reports that she used to smoke 1 cigarette a day for about 10-15 years. Primary care physician: Dr. Nilay Stephen Code status: Full code. The patient does not have advanced directives in place. Years smoked: 20 Smoking status: Never smoker Second hand tobacco smoke exposure: Yes Alcohol intake: current Drinks per week: 20 Alcohol use details: She drinks 4 mixed drinks with 1 shot of whiskey per drink each night. She has done this at least since her mid 30s or 40s. Substance use: never Substance use type: does not use Lack of Transportation: No Lack of Food: Never True Current Housing: I Have Housing Concerned About Future Housing: No Difficulty Paying Gas/Electric Bills: No Difficulty Paying for Meds: No Currently Unemployed: No Education: High School Diploma/GED D
[2023-07-07 16:22] LABS: Influenza A QL RT-PCR Negative (Negative); Influenza B QL RT-PCR Negative (Negative); SARS-CoV-2 RNA PCR Positive (Negative)
[2023-07-07 16:47] LABS: Appearance Urine Slightly Cloudy (Clear); Bilirubin Urine 2+ (Negative); Blood Urine Trace-intact (Negative); Color Urine Yellow (Yellow); Glucose Urine UA Trace mg/dL (Negative); Ketones Urine 1+ mg/dL (Negative); Leukocyte Esterase Ur Negative LEU/UL (Negative); Nitrate Urine Negative (Negative); Protein Urine 3+ mg/dL (Negative); Specific Grav Ur >= 1.030 (1.001-1.035)
[2023-07-07 16:53] LABS: Basophils Percent Auto 0.2 % (0.2-1.2); Eosinophils Percent Auto 0.2 % (0-4.4); Hematocrit 44.9 % (37.0-47.0); Hemoglobin 14.3 g/dL (12.0-15.0); Immature Granulocyte Absolute 0.01 K/mm3 (0.00-0.031); Immature Granulocyte Percent A 0.2 % (0-0.5); Lymphocytes Absolute Auto 1.83 K/mm3 (0.9-3.2); Lymphocytes Percent Auto 42.5 % (18.3-44.2); Mean Corpuscular HGB Conc 31.8 g/dl (32-36); Mean Corpuscular Hemoglobin 30.5 pg (26-34); Mean Corpuscular Volume 95.7 fl (80-100); Mean Platelet Volume 9.9 fl (7.4-10.4); Monocytes Absolute Auto 0.6 K/mm3 (0.1-0.6); Monocytes Percent Auto 12.8 % (2.6-8.5); Neutrophils Absolute Auto 1.9 K/mm3 (1.3-6.7); Neutrophils Percent Auto 44.1 % (45.5-73.1); Platelet Count Result 177 k/mm3 (150-375); Red Blood Count 4.69 M/mm3 (4.2-5.4); Red Cell Distribution Width 12.3 % (11.5-14.5); White Blood Count 4.3 K/mm3 (4.5-10.0)
[2023-07-07 17:00] LABS: Lactic Acid Reflex 2.3 mmol/L (0.7-2.0)
[2023-07-07 17:02] LABS: Alanine Aminotransferase 20 U/L (6-35); Albumin Level 4.6 g/dL (3.5-5.1); Alkaline Phosphatase 70 U/L (38-126); Anion Gap 10 mmol/L (8-16); Aspartate Amino Transferase 37 U/L (14-36); Blood Urea Nitrogen 11 mg/dL (7-17); CRP 3.5 mg/dL (<1.0); Calcium 9.5 mg/dL (8.4-10.2); Carbon Dioxide 27 mmol/L (22-30); Chloride 101 mmol/L (98-107); Estimated CRCL calculation 61 ml/min; Estimated Glomerular Filt Rate > 60; Glucose 116 mg/dL (65-110); Potassium 3.8 mmol/L (3.4-5.0); Sodium 138 mmol/L (137-145)
[2023-07-07 17:12] LABS: Squamous Epithelial Cell Urine Moderate /hpf (Few); WBC Urine 0-3 /hpf (0-3)
[2023-07-07 17:14] LABS: Bacteria Urine Trace /hpf; Hyaline Casts Urine 0-2 /lpf
[2023-07-07 17:37] LABS: Add Urine Microscopic? YES
[2023-07-07 19:38] VITALS: BP 113/68; PULSE 93; RESP 17; TEMP 36.1; O2SAT 94
[2023-07-07 19:41] LABS: Reflex Lactic Acid Yes or No Add Lactic
--- NOTE | 2023-07-07 19:41 | PC.NURSE ---
patient states she is going to leave. advised to come back if symptoms get worse.
== END 2023-07-07 19:41 | disposition left against medical advice (07) ==
PROVIDERS: Student in an Organized Health Care Education/Training Program; Emergency Provider Nurse Practitioner Family
DX: U07.1 COVID-19 (principal); I35.0 Nonrheumatic aortic (valve) stenosis; I10 Essential (primary) hypertension; I27.20 Pulmonary hypertension, unspecified; I48.92 Unspecified atrial flutter; E78.5 Hyperlipidemia, unspecified; N39.490 Overflow incontinence; Z86.73 Personal history of transient ischemic attack (TIA), and cerebral infarction without residual deficits; Z87.01 Personal history of pneumonia (recurrent); Z98.42 Cataract extraction status, left eye; Z98.41 Cataract extraction status, right eye; Z96.1 Presence of intraocular lens; Z79.01 Long term (current) use of anticoagulants; I51.7 Cardiomegaly; I47.19 Other supraventricular tachycardia; F17.210 Nicotine dependence, cigarettes, uncomplicated
CPT/HCPCS: 36415; 71046; 80053; 81001; 83605; 85025; 86140; 87636; 93005; 99283

== ENCOUNTER 2023-12-17 13:57 | Inpatient (IN) | payer MEDICARE, SELFPAY ==
[2023-12-17] VITALS (7 sets, daily range): BP systolic 109–148; BP diastolic 61–93; PULSE 73–78; RESP 14–20; TEMP 36.4–36.5; O2SAT 96–100
--- NOTE | ~2023-12-17 | US_ITS ---
EXAMINATION: US venous doppler [facility] DATE: 12/17/2023 15:05 INDICATION: Lower limb swelling. TECHNIQUE: Grayscale ultrasound images without and with compression and Doppler ultrasound images of the bilateral lower extremity veins were obtained. COMPARISON: None. FINDINGS: There is thrombus in right common femoral vein, profunda femoral vein, femoral vein, popliteal vein, and posterior tibial veins. The greater saphenous vein outflow is patent. There is thrombus in left common femoral vein, profunda femoral vein, femoral vein, and popliteal vei n. The left posterior tibial veins, gastrocnemius veins, and greater saphenous vein outflow are paten t. IMPRESSION: 1. Bilateral lower limb deep vein thrombosis. Reviewed, dictated and finalized at location E.
--- NOTE | 2023-12-17 14:28 | ED.EXTPRO ---
HPI - Extremity Problem General Chief complaint: Extremity Problem,Nontraumatic <Asael Orellana MD - Last Filed: 12/19/23 01:06> Stated complaint: B/L LE swellng/pain - ?hx DVT <Asael Orellana MD - Last Filed: 12/19/23 01:06> Time Seen by Provider: 12/17/23 14:12 <Asael Orellana MD - Last Filed: 12/19/23 01:06> History of Present Illness HPI Narrative: Patient is a 78-year-old female who presents ER with lower extremity swelling/pain. Pain is worse over last couple of days, edema chronic x 3 months. Has history of DVT that required surgical to thrombectomy in August of 2023 but they could no get all the. She has been on a blood thinner since then. She has not missed her medication. No chest pain or shortness of breath. Reports some chronic exertional dyspnea related to her congestive heart failure. No trauma. <Asael Orellana MD - Last Filed: 12/19/23 01:06> Related Data Home medications: Home Medications Medication Instructions Recorded Confirmed simvastatin 20 mg tablet 20 mg PO DAILY 07/25/19 12/18/23 apixaban 5 mg tablet (Eliquis) 5 mg PO DAILY 11/24/19 12/18/23 bupropion HCl 150 mg 24 hr tablet, 150 mg PO DAILY 03/15/21 12/18/23 extended release ferrous sulfate 325 mg (65 mg 325 mg PO DAILY 03/15/21 12/18/23 iron) tablet lisinopril 40 mg tablet 40 mg PO DAILY 01/06/23 12/18/23 olmesartan 40 mg tablet 40 mg PO DAILY 01/06/23 12/18/23 acetaminophen 300 mg-codeine 30 mg 1 tablet PO TID PRN Pain (Scale 12/18/23 12/18/23 tablet Score 4-6) allopurinol 100 mg tablet 100 mg PO DAILY 12/18/23 12/18/23 folic acid 1 mg tablet 1 mg PO DAILY 12/18/23 12/18/23 gabapentin 400 mg tablet 800 mg PO HS 12/18/23 12/18/23 metoprolol tartrate 25 mg tablet 50 mg PO DAILY 12/18/23 12/18/23 mirtazapine 30 mg tablet 30 mg PO DAILY 12/18/23 12/18/23 pantoprazole 40 mg tablet,delayed 40 mg PO DAILY 12/18/23 12/18/23 release sennosides 8.6 mg-docusate sodium 1 tab-cap PO BID 12/18/23 12/18/23 50 mg tablet (Senexon-S) thiamine HCl (vitamin B1) 100 mg 100 mg PO DAILY 12/18/23 12/18/23 tablet <Asael Orellana MD - Last Filed: 12/19/23 01:06> Allergies/Adverse reactions: Allergies Allergy/AdvReac Type Severity Reaction Status Date / Time No Known Allergies Allergy Verified 12/17/23 13:58 <Asael Orellana MD - Last Filed: 12/19/23 01:06> Review of Systems Review of Systems: All systems reviewed & are unremarkable except as noted in HPI and below <Asael Orellana MD - Last Filed: 12/19/23 01:06> Constitutional: Constitutional: Reports no additional constitutional complaints <Asael Orellana MD - Last Filed: 12/19/23 01:06> Cardiovascular: Cardiovascular: Reports no additional cardiovascular complaints <Asael Orellana MD - Last Filed: 12/19/23 01:06> Respiratory: Respiratory: Reports no additional respiratory complaints <Asael Orellana MD - Last Filed: 12/19/23 01:06> Musculoskeletal: Musculoskeletal: Denies back pain, Denies arthralgias and Denies joint swelling <Asael Orellana MD - Last Filed: 12/19/23 01:06> Comments: leg swelling <Asael Orellana MD - Last Filed: 12/19/23 01:06> PMFSH Past Medical History Medical History: Medical History (Updated 12/19/23 @ 00:25 by Maddi Lynch PA-C) Aortic stenosis Cerebrovascular accident Depression Dyslipidemia Esophageal ulcer Approximately 15 years ago Essential hypertension Overflow stress urinary incontinence in female Paroxysmal atrial flutter Diagnosed July 2019 Pneumonia Treated as outpatient July 2015 and January 2018, was admitted as inpatient July 2019 Pulmonary hypertension Mild on echocardiogram from May 2019 with RVSP 41 Shingles Transient ischemic attack <Asael Orellana MD - Last Filed: 12/19/23 01:06> Surgical History Surgical History: Surgical History (Updated 12/18/23 @ 17:52 by Maddi Lynch PA-C) History
[2023-12-17 15:46] LABS: Basophils Percent Auto 0.6 % (0.2-1.2); Eosinophils Absolute Auto 0.1 K/mm3 (0-0.3); Eosinophils Percent Auto 1.4 % (0-4.4); Hematocrit 38.5 % (37.0-47.0); Hemoglobin 12.1 g/dL (12.0-15.0); Immature Granulocyte Absolute 0.01 K/mm3 (0.00-0.031); Immature Granulocyte Percent A 0.2 % (0-0.5); Lymphocytes Absolute Auto 1.48 K/mm3 (0.9-3.2); Lymphocytes Percent Auto 29.4 % (18.3-44.2); Mean Corpuscular HGB Conc 31.4 g/dl (32-36); Mean Corpuscular Hemoglobin 28.7 pg (26-34); Mean Corpuscular Volume 91.4 fl (80-100); Mean Platelet Volume 9.6 fl (7.4-10.4); Monocytes Absolute Auto 0.4 K/mm3 (0.1-0.6); Monocytes Percent Auto 6.9 % (2.6-8.5); Neutrophils Absolute Auto 3.1 K/mm3 (1.3-6.7); Neutrophils Percent Auto 61.5 % (45.5-73.1); Platelet Count Result 219 k/mm3 (150-375); Red Blood Count 4.21 M/mm3 (4.2-5.4); Red Cell Distribution Width 15.4 % (11.5-14.5)
[2023-12-17 15:55] LABS: INR 1.1; Prothrombin Time 14.5 Seconds (11.1-14.7)
[2023-12-17 15:56] LABS: Partial Thromboplastin Time 31.1 Seconds (22.3-36.8)
[2023-12-17 15:59] LABS: Anion Gap 9 mmol/L (4-12); Blood Urea Nitrogen 31 mg/dL (7-17); Calcium 10.3 mg/dL (8.4-10.2); Carbon Dioxide 26 mmol/L (22-30); Chloride 106 mmol/L (98-107); Estimated CRCL calculation 60 ml/min; Estimated Glomerular Filt Rate > 60; Glucose 117 mg/dL (65-110); Potassium 4.3 mmol/L (3.4-5.0); Sodium 141 mmol/L (137-145)
[2023-12-17] MEDS: HEPARIN SOD/D5W 100 UNITS/ML 25,000 UNITS/250 ML BAG 13 UNITS IV CONT (19:35)
[2023-12-17] MEDS: HEPARIN SODIUM 5,000 UNITS/ML VIAL 6000 UNITS IV PUSH (19:36)
[2023-12-17] MEDS: ACETAMINOPHEN 500 MG TABLET 1000 MG PO (22:45)
[2023-12-18] VITALS (13 sets, daily range): BP systolic 102–151; BP diastolic 56–97; PULSE 70–128; RESP 14–23; TEMP 36.4–36.8; O2SAT 96–100; BMI 35.2
[2023-12-18 02:06] LABS: INR 1.1; Prothrombin Time 14.7 Seconds (11.1-14.7)
[2023-12-18 02:10] LABS: Partial Thromboplastin Time 156.9 Seconds (22.3-36.8)
--- NOTE | 2023-12-18 02:56 | PC.NURSE ---
Heparin infusion stopped due to aptt 156.9
--- NOTE | 2023-12-18 03:00 | PC.NURSE ---
Pt requesting home dose of gabapentin. Dr Plascencia updated and VORB for pt's home dose obtained.
[2023-12-18] MEDS: GABAPENTIN 300 MG CAPSULE PO (03:34)
[2023-12-18 08:02] LABS: Basophils Percent Auto 0.5 % (0.2-1.2); Eosinophils Absolute Auto 0.1 K/mm3 (0-0.3); Eosinophils Percent Auto 1.9 % (0-4.4); Hematocrit 33.8 % (37.0-47.0); Hemoglobin 10.7 g/dL (12.0-15.0); Immature Granulocyte Absolute 0.02 K/mm3 (0.00-0.031); Immature Granulocyte Percent A 0.5 % (0-0.5); Lymphocytes Absolute Auto 1.72 K/mm3 (0.9-3.2); Lymphocytes Percent Auto 40.4 % (18.3-44.2); Mean Corpuscular HGB Conc 31.7 g/dl (32-36); Mean Corpuscular Hemoglobin 28.8 pg (26-34); Mean Corpuscular Volume 91.1 fl (80-100); Mean Platelet Volume 9.4 fl (7.4-10.4); Monocytes Absolute Auto 0.4 K/mm3 (0.1-0.6); Monocytes Percent Auto 8.7 % (2.6-8.5); Neutrophils Absolute Auto 2.1 K/mm3 (1.3-6.7); Platelet Count Result 191 k/mm3 (150-375); Red Blood Count 3.71 M/mm3 (4.2-5.4); Red Cell Distribution Width 15.4 % (11.5-14.5); White Blood Count 4.3 K/mm3 (4.5-10.0)
[2023-12-18 09:19] LABS: Partial Thromboplastin Time 90.2 Seconds (22.3-36.8)
[2023-12-18] MEDS: LORazepam INJ (*CRX) 2 MG/ML VIAL 0.5 MG IV PUSH (11:24)
--- NOTE | 2023-12-18 14:05 | PC.NURSE ---
Call received from [facility]. They are still at critical capacity and do not know when a bed will be available.
[2023-12-18 14:45] LABS: Partial Thromboplastin Time 82.6 Seconds (22.3-36.8)
--- NOTE | 2023-12-18 17:36 | ADMGEN ---
This patient, Mandi Ramirez, was admitted to Medical Room 249-01. Patient/family oriented to hospital policies and general routines including ID bracelet, bed and alarms, visiting hours, pain management, procedures, bathroom and other care routines, personal items, smoking policy, room service/diet, and visiting hours. Information on how to activate the Rapid Response Team has been discussed. Patient/Family are encouraged to report perceived risks to care and to ask questions if they do not understand what they are told or what they should do.
--- NOTE | 2023-12-18 17:45 | PM.IMHP ---
H&P: HPI History of Present Illness Date/Time: 12/18/23 19:15 Chief Complaint: Bilateral leg pain and swelling. Narrative: This is a very pleasant 78-year-old female with history of deep venous thrombosis requiring thrombectomy in August 2023, stroke with what sounds like some component of hemorrhage requiring a temporary discontinuation of anticoagulation status post IVC filter insertion, hypertension, hyperlipidemia, and anemia who presented to the emergency department yesterday afternoon via private vehicle from home for evaluation of bilateral leg pain and swelling. The patient provides the following history. She has had swelling in both legs but it has markedly increased in the last 3 weeks associated with leg pain. Because of her history she decided to come in for evaluation and she was found to have bilateral lower limb DVTs to include both common femoral, profundua, femoral, and popliteal veins. ED physician spoke with the patient's primary care physician regarding these results and he indicated that the patient had been taking subtherapeutic doses of apixaban and her dose was recently increased to 5 mg b.i.d.. Given her history he thought it would be best for her to be seen by vascular surgeon and the ED physician spoke with Dr. Martinez, vascular surgeon at [facility], who recommend starting IV heparin and they will see how she responds to that for determining whether not she may need thrombectomy. She was accepted by Dr. Fenton with the hospitalist service however after over 24 hours a bed is still not available and she is being admitted to the [facility] floor for further treatment pending transfer. At the time my evaluation she is resting comfortably. She remarks that the swelling seems to have improved. She denies fever, chills, sweats, chest pain, pleuritic pain, shortness of breath, nausea, and vomiting. She also denies temperature changes and numbness in the lower extremities. Review of Systems Review of Systems: 12 systems were reviewed and are negative except for as per HPI. [facility] Past Medical History Medical History (Updated 12/19/23 @ 00:25 by Maddi Lynch PA-C) Aortic stenosis Cerebrovascular accident Depression Dyslipidemia Esophageal ulcer Approximately 15 years ago Essential hypertension Overflow stress urinary incontinence in female Paroxysmal atrial flutter Diagnosed July 2019 Pneumonia Treated as outpatient July 2015 and January 2018, was admitted as inpatient July 2019 Pulmonary hypertension Mild on echocardiogram from May 2019 with RVSP 41 Shingles Transient ischemic attack Surgical History Surgical History (Updated 12/18/23 @ 17:52 by Maddi Lynch PA-C) History of appendectomy History of cataract extraction with lens replacement History of tonsillectomy Family History Family History Mother Breast cancer She of old age at 90 years old Son Pulmonary embolism He in his 50's. Father Pneumonia in his 90's with pneumonia. Social History Social History (Updated 12/19/23 @ 00:25 by Maddi Lynch PA-C) Social History: Surrogate medical decision maker: Briana lobo, nichristal. Code status: Full code. Years smoked: 20 Smoking status: Former smoker Second hand tobacco smoke exposure: Yes Alcohol intake: current Drinks per week: 20 Alcohol use details: She drinks 4 mixed drinks with 1 shot of whiskey per drink each night. She has done this at least since her mid 30s or 40s. Substance use: never Substance use type: does not use Do You Feel Safe in your Home?: Yes Lack of Transportation: No Lack of Food: Never True Current Housing: I Have Housing Concerned About Future Housing: No Difficulty Paying Gas/Electric Bills: No Difficulty Paying for Meds: No Currently Unemployed: No Education: High S
[2023-12-18] MEDS: HEPARIN SOD/D5W 100 UNITS/ML 25,000 UNITS/250 ML BAG 11 UNITS IV CONT (18:05)
[2023-12-18] MEDS: GABAPENTIN 400 MG CAPSULE 800 MG PO (23:21)
[2023-12-19] VITALS (10 sets, daily range): BP systolic 137–148; BP diastolic 58–75; PULSE 63–94; RESP 16–20; TEMP 36.6–37.2; O2SAT 94–99
[2023-12-19 05:19] LABS: Hematocrit 36.1 % (37.0-47.0); Hemoglobin 11.2 g/dL (12.0-15.0); Mean Corpuscular Hemoglobin 28.3 pg (26-34); Mean Corpuscular Volume 91.2 fl (80-100); Mean Platelet Volume 9.7 fl (7.4-10.4); Platelet Count Result 204 k/mm3 (150-375); Red Blood Count 3.96 M/mm3 (4.2-5.4); Red Cell Distribution Width 15.4 % (11.5-14.5); White Blood Count 4.9 K/mm3 (4.5-10.0)
[2023-12-19 05:40] LABS: Partial Thromboplastin Time 73.9 Seconds (22.3-36.8)
[2023-12-19 05:43] LABS: Anion Gap 5 mmol/L (4-12); Blood Urea Nitrogen 18 mg/dL (7-17); Calcium 9.6 mg/dL (8.4-10.2); Carbon Dioxide 26 mmol/L (22-30); Chloride 110 mmol/L (98-107); Estimated CRCL calculation 69 ml/min; Estimated Glomerular Filt Rate > 60; Glucose 123 mg/dL (65-110); Magnesium 2.2 mg/dL (1.6-2.3); Potassium 3.9 mmol/L (3.4-5.0); Sodium 141 mmol/L (137-145)
[2023-12-19] MEDS: ACETAMINOPHEN 325 MG TABLET 650 MG PO (07:03)
--- NOTE | 2023-12-19 08:47 | PM.IMPN ---
Progress Note: A&P Assessment and Plan (1) Deep vein thrombosis of bilateral lower extremities: Code(s): I82.403 - Acute embolism and thrombosis of unspecified deep veins of lower extremity, bilateral Status: Acute (2) Hypertension: Qualifiers: Hypertension type: primary hypertension Qualified Code(s): I10 - Essential (primary) hypertension Code(s): I10 - Essential (primary) hypertension Status: Acute (3) Dyslipidemia: Code(s): E78.5 - Hyperlipidemia, unspecified Status: Acute Plan This is a very pleasant 78-year-old female with history of deep venous thrombosis requiring thrombectomy in August 2023, stroke with what sounds like some component of hemorrhage requiring a temporary discontinuation of anticoagulation status post IVC filter insertion, hypertension, hyperlipidemia, and anemia who presented to the emergency department yesterday afternoon via private vehicle from home for evaluation of bilateral leg pain and swelling. She has had swelling in both legs but it has markedly increased in the last 3 weeks associated with leg pain. Because of her history she decided to come in for evaluation and she was found to have bilateral lower limb DVTs to include both common femoral, profundua, femoral, and popliteal veins. ED physician spoke with the patient's primary care physician regarding these results and he indicated that the patient had been taking subtherapeutic doses of apixaban and her dose was recently increased to 5 mg b.i.d.. Given her history he thought it would be best for her to be seen by vascular surgeon and the ED physician spoke with Dr. aMrtinez, vascular surgeon at [facility], who recommend starting IV heparin and they will see how she responds to that for determining whether not she may need thrombectomy. She was accepted by Dr. Fenton with the hospitalist service however after over 24 hours a bed is still not available and she is being admitted to the [facility] floor for further treatment pending transfer. Subjective Date/time seen: 12/19/23 08:47 Interval history: Chart reviewed. No overnight events. Labs reviewed. Discussed with nursing staff. Review of Systems Review of Systems: All systems reviewed & are unremarkable except as noted in HPI and below Exam Narrative: General: Nontoxic-appearing female in the semi-Cheatham position in bed. HEENT: PERRL, EOMI. Sclera anicteric. Oral mucosa moist. Neck: Supple. Respiratory: Lungs are clear to auscultation bilaterally. Cardiovascular: Regular rate and rhythm with S1-S2. 3/6 systolic murmur heard at the upper sternal border. Gastrointestinal: Abdomen is soft, nontender, and nondistended with positive bowel sounds. Skin: Warm and dry. Extremities: No cyanosis or clubbing. Bilateral lower extremity edema with faint erythema. She is neurovascularly intact throughout the lower extremities but reports chronic sensations of neuropathy. Neurological: Alert. Cranial nerves 2-12 are grossly intact. No gross focal deficits to casual conversation. Psychiatric: Pleasant and cooperative with normal mood and affect. Judgment and insight intact. Objective Data Vital Signs Vital Signs: Vital Signs - 24 hr 12/18/23 09:37 12/18/23 10:24 12/18/23 10:58 Temperature Pulse Rate 77 79 71 Respiratory Rate 17 23 H 16 Blood Pressure 150/62 H 113/59 L 131/67 Pulse Oximetry 97 99 100 Oxygen Delivery 12/18/23 12:07 12/18/23 14:17 12/18/23 15:05 Temperature 97.8 F Pulse Rate 80 81 79 Respiratory Rate 19 14 14 Blood Pressure 127/90 151/74 H 132/66 Pulse Oximetry 97 97 98 Oxygen Delivery 12/18/23 16:07 12/18/23 16:32 12/18/23 18:33 Temperature 98.2 F Pulse Rate 98 88 128 H Respiratory Rate 18 14 18 Blood Pressure 129/87 129/97 H 151/73 H Pulse Oximetry 99 100 96 Oxygen Delivery 12/18/23 18:56 12/18/23 21:48 12/18/23 20:00 Temperature 97.6 F Pulse Rate 92 95 Re
[2023-12-19] MEDS: allopurinoL 100 MG TABLET PO (09:34)
[2023-12-19] MEDS: buPROPion HCL XL (24 HR) 150 MG TABCR PO (09:34)
[2023-12-19] MEDS: SENNA/DOCUSATE SODIUM TABLET 1 TAB PO ×2 (09:34→17:15)
[2023-12-19] MEDS: FERROUS SULFATE 325 MG TABLET DR PO (09:35)
[2023-12-19] MEDS: FUROSEMIDE 20 MG TABLET PO (09:35)
[2023-12-19] MEDS: FOLIC ACID 1 MG TABLET PO (09:35)
[2023-12-19] MEDS: PANTOPRAZOLE 40 MG TABLET PO (09:36)
[2023-12-19] MEDS: METOPROLOL TARTRATE 50 MG TAB PO (09:36)
[2023-12-19] MEDS: MIRTAZAPINE 30 MG TABLET PO (09:36)
[2023-12-19] MEDS: THIAMINE HCL 100 MG TABLET PO (09:37)
[2023-12-19] MEDS: SIMVASTATIN 20 MG TABLET PO (09:37)
[2023-12-19] MEDS: OLMESARTAN MEDOXOMIL 20 MG TABLET 40 MG PO (09:37)
[2023-12-19] MEDS: HEPARIN SOD/D5W 100 UNITS/ML 25,000 UNITS/250 ML BAG 11 UNITS IV CONT (17:15)
[2023-12-19] MEDS: GABAPENTIN 400 MG CAPSULE 800 MG PO (19:56)
[2023-12-20] VITALS: PULSE 78
== END 2023-12-20 01:37 | disposition short-term general hospital (02) | DRG 300 ==
LOC: ANHED 21:39 → ANH2MED 12-18 16:28
PROVIDERS: Emergency Medicine; Physician Assistant; Admitting Provider Hospitalist; Emergency Provider Emergency Medicine; Visit Provider Internal Medicine
DX: I82.413 Acute embolism and thrombosis of femoral vein, bilateral (principal); I48.92 Unspecified atrial flutter; I82.433 Acute embolism and thrombosis of popliteal vein, bilateral; E78.5 Hyperlipidemia, unspecified; F32.A Depression, unspecified; I35.0 Nonrheumatic aortic (valve) stenosis; I10 Essential (primary) hypertension; Z86.718 Personal history of other venous thrombosis and embolism; Z79.01 Long term (current) use of anticoagulants; Z86.73 Personal history of transient ischemic attack (TIA), and cerebral infarction without residual deficits; Z90.49 Acquired absence of other specified parts of digestive tract; Z87.891 Personal history of nicotine dependence; Z95.828 Presence of other vascular implants and grafts
CPT/HCPCS: 36415; 80048; 83735; 85025; 85027; 85610; 85730; 93970; 96365; 96366; 96375; 99285; A9270; G0378; J1644; J2060

== ENCOUNTER 2024-03-06 15:52 | Emergency (ER) | payer MEDICARE, SELFPAY ==
--- NOTE | ~2024-03-06 | XR_ITS ---
EXAMINATION: XR chest 2V Exam Date/Time: 03/06/2024 16:24 CDT HISTORY: Shortness of breath x 2 days ago Comparison: 07/07/2023. RESULT: Lines, tubes, and devices: None. Lungs and pleura: Chronic interstitial change. Bibasilar scar/atelectasis. No focal consolidation, p leural effusion, or pneumothorax. Cardiomediastinal silhouette: Stable. Moderate hiatal hernia. Other: No acute osseous or upper abdominal finding. IMPRESSION: No acute cardiopulmonary process. Reviewed, dictated and finalized at location K.
[2024-03-06 15:58] VITALS: BP 134/66; PULSE 69; RESP 20; TEMP 36.5; O2SAT 96
--- NOTE | 2024-03-06 15:58 | ECG_ITS ---
Test Date: 2024-03-06 16:00:23 Measurements Intervals [place] Rate: 68 P: 26 WI: 250 QRS: -29 QRSD: 80 T: 70 QT: 392 QTc: 419 Interpretive Statements SINUS RHYTHM WITH FIRST DEGREE AV BLOCK LEFT VENTRICULAR HYPERTROPH WITH ST-T CHANGE BORDERLINE R WAVE PROGRESSION, ANTERIOR LEADS BASELINE ARTIFACT- I, II, III, AVR, AVL, AVF, V1-V6 BORDERLINE ECG No previous ECG available for comparison Electronically Signed On 03-06-2024 18:18:06 CDT by Kash Butler D.O.
[2024-03-06 16:05] VITALS: PULSE 66
[2024-03-06] MEDS: IPRATROPIUM 0.5 MG/ALBUTEROL SULFATE 2.5 MG AMPUL.NEB 3 ML INHALATION (16:14)
[2024-03-06 16:15] VITALS: PULSE 65; RESP 16
[2024-03-06 16:21] VITALS: PULSE 63; RESP 16
--- NOTE | 2024-03-06 16:25 | ED.SOB ---
HPI - SOB/Dyspnea General Chief Complaint: Shortness of Breath/Dyspnea Stated Complaint: sob Time Seen by Provider: 03/06/24 15:55 History of Present Illness HPI Narrative: Patient is a 78-year-old female with history DVT who presents ER with shortness of breath. Shortness of breath has been ongoing for 2 days. Reports she feels like she can not get a full breath. Has felt mildly chilled. No documented fevers. No runny nose or sore throat or productive cough. No chest pain. No hemoptysis. Patient has been taking Lovenox for her DVTs that required thrombectomy. She reports she does not respond Eliquis so that is why she is on Lovenox continuously. She also has a IVC filter. No new swelling or pain in her legs. She reports she has intermittent edema that improves with compression stockings and elevation. She is most concerned about pneumonia at this time. Cannot identify any aggravating or alleviating factors of her dyspnea. Related Data Home Medications Medication Instructions Recorded Confirmed simvastatin 20 mg tablet 20 mg PO DAILY 07/25/19 12/18/23 apixaban 5 mg tablet (Eliquis) 5 mg PO DAILY 11/24/19 12/18/23 bupropion HCl 150 mg 24 hr tablet, 150 mg PO DAILY 03/15/21 12/18/23 extended release ferrous sulfate 325 mg (65 mg 325 mg PO DAILY 03/15/21 12/18/23 iron) tablet olmesartan 40 mg tablet 40 mg PO DAILY 01/06/23 12/18/23 acetaminophen 300 mg-codeine 30 mg 1 tablet PO TID PRN Pain (Scale 12/18/23 12/18/23 tablet Score 4-6) allopurinol 100 mg tablet 100 mg PO DAILY 12/18/23 12/18/23 folic acid 1 mg tablet 1 mg PO DAILY 12/18/23 12/18/23 gabapentin 400 mg tablet 800 mg PO HS 12/18/23 12/18/23 metoprolol tartrate 25 mg tablet 50 mg PO DAILY 12/18/23 12/18/23 mirtazapine 30 mg tablet 30 mg PO DAILY 12/18/23 12/18/23 pantoprazole 40 mg tablet,delayed 40 mg PO DAILY 12/18/23 12/18/23 release sennosides 8.6 mg-docusate sodium 1 tab-cap PO BID 12/18/23 12/18/23 50 mg tablet (Senexon-S) thiamine HCl (vitamin B1) 100 mg 100 mg PO DAILY 12/18/23 12/18/23 tablet Allergies Allergy/AdvReac Type Severity Reaction Status Date / Time No Known Allergies Allergy Verified 03/06/24 16:59 Review of Systems Review of Systems: All systems reviewed & are unremarkable except as noted in HPI and below Constitutional: Constitutional: Reports no additional constitutional complaints ENT: Reports system reviewed and no additional complaints, except as documented Cardiovascular: Cardiovascular: Reports no additional cardiovascular complaints Respiratory: Respiratory: Denies chest congestion, Denies cough, Reports dyspnea and Denies wheezing Gastrointestinal: Gastrointestinal: Reports no additional gastrointestinal complaints Musculoskeletal: Musculoskeletal: Reports no additional musculoskeletal complaints [facility] Past Medical History Medical History (Updated 03/06/24 @ 17:17 by Aseal Orellana MD) Aortic stenosis Cerebrovascular accident Depression Dyslipidemia Esophageal ulcer Approximately 15 years ago Essential hypertension Overflow stress urinary incontinence in female Paroxysmal atrial flutter Diagnosed July 2019 Pneumonia Treated as outpatient July 2015 and January 2018, was admitted as inpatient July 2019 Pulmonary hypertension Mild on echocardiogram from May 2019 with RVSP 41 Shingles Transient ischemic attack Surgical History Surgical History (Updated 12/18/23 @ 17:52 by Maddi Lynch PA-C) History of appendectomy History of cataract extraction with lens replacement History of tonsillectomy Family History Family History Mother Breast cancer She of old age at 90 years old Son Pulmonary embolism He in his 50's. Father Pneumonia in his 90's with pneumonia. Social History Social History (Updated 12/19/23 @ 00:25 by Maddi Regan
[2024-03-06 16:27] LABS: Basophils Percent Auto 0.8 % (0.2-1.2); Eosinophils Absolute Auto 0.1 K/mm3 (0-0.3); Eosinophils Percent Auto 1.7 % (0-4.4); Hematocrit 30.7 % (37.0-47.0); Hemoglobin 9.8 g/dL (12.0-15.0); Immature Granulocyte Absolute 0.03 K/mm3 (0.00-0.031); Immature Granulocyte Percent A 0.6 % (0-0.5); Lymphocytes Percent Auto 39.6 % (18.3-44.2); Mean Corpuscular HGB Conc 31.9 g/dl (32-36); Mean Corpuscular Hemoglobin 30.3 pg (26-34); Mean Platelet Volume 9.9 fl (7.4-10.4); Monocytes Absolute Auto 0.4 K/mm3 (0.1-0.6); Monocytes Percent Auto 6.6 % (2.6-8.5); Neutrophils Absolute Auto 2.7 K/mm3 (1.3-6.7); Neutrophils Percent Auto 50.7 % (45.5-73.1); Platelet Count Result 191 k/mm3 (150-375); Red Blood Count 3.23 M/mm3 (4.2-5.4); Red Cell Distribution Width 15.4 % (11.5-14.5); White Blood Count 5.3 K/mm3 (4.5-10.0)
[2024-03-06 16:37] LABS: Alanine Aminotransferase 21 U/L (6-35); Albumin Level 4.3 g/dL (3.5-5.1); Alkaline Phosphatase 69 U/L (38-126); Anion Gap 8 mmol/L (4-12); Aspartate Amino Transferase 25 U/L (14-36); Bilirubin,Total 0.6 mg/dL (0.2-1.3); Blood Urea Nitrogen 28 mg/dL (7-17); Calcium 9.3 mg/dL (8.4-10.2); Carbon Dioxide 23 mmol/L (22-30); Chloride 109 mmol/L (98-107); Estimated CRCL calculation 45 ml/min; Estimated Glomerular Filt Rate 48; Glucose 124 mg/dL (65-110); Potassium 4.1 mmol/L (3.4-5.0); Sodium 140 mmol/L (137-145)
[2024-03-06] MEDS: SODIUM CHLORIDE 0.9% IV 1,000 ML 999 ML IV CONT (16:58)
[2024-03-06 16:59] VITALS: BP 121/61; PULSE 67; RESP 16; O2SAT 94
[2024-03-06 17:03] LABS: Influenza A QL RT-PCR Negative (Negative); Influenza B QL RT-PCR Negative (Negative); RSV RNA, RT-PCR Negative (Negative); SARS-CoV-2 RNA PCR Negative (Negative)
== END 2024-03-06 17:52 | disposition home or self-care (01) ==
PROVIDERS: Emergency Provider Emergency Medicine
DX: E86.0 Dehydration (principal); R06.00 Dyspnea, unspecified; E78.5 Hyperlipidemia, unspecified; I10 Essential (primary) hypertension; Z86.73 Personal history of transient ischemic attack (TIA), and cerebral infarction without residual deficits; Z86.718 Personal history of other venous thrombosis and embolism; Z87.891 Personal history of nicotine dependence; Z20.822 Contact with and (suspected) exposure to COVID-19
CPT/HCPCS: 36415; 71046; 80053; 85025; 87637; 93005; 94640; 96360; 99284; J7030

== ENCOUNTER 2024-06-23 22:14 | Emergency (ER) | payer MEDICARE, SELFPAY ==
--- NOTE | ~2024-06-23 | CT_ITS ---
EXAMINATION: CT brain wo con DATE: 06/23/2024 23:10 INDICATION: Headache TECHNIQUE: Computed tomography (CT) of the head was performed without intravenous contrast. Sagittal and coronal reconstructions were performed. The mA was adjusted according to patient size. Iterative reconstruction technique was employed. The dose-length product was 681.00 mGy-cm. COMPARISON: head CT dated 11/02/2019 FINDINGS: Unchanged small old lacunar infarcts at the bilateral basal ganglia. No acute intracranial hemorrhage , acute infarction or abnormal extra axial fluid collection. There is mild scattered white matter hyp oattenuation consistent with chronic small vessel ischemic disease. Symmetric prominence of the sulci and ventricles consistent with mild to moderate age-appropriate diffuse cerebral volume loss. Ventri cles are normal and symmetric. No mass/mass effect. Changes of bilateral intraocular lens replacement . The orbits, paranasal sinuses and mastoid air cells are normal. IMPRESSION: 1. Old lacunar infarcts at the bilateral basal ganglia. No acute intracranial process. 2. Degenerative changes including mild to moderate diffuse volume loss and mild scattered white matte r hypoattenuation consistent with chronic small vessel ischemic disease. Reviewed, dictated and finalized at location A. IMPRESSION: 1. Old lacunar infarcts at the bilateral basal ganglia. No acute intracranial p rocess. 2. Degenerative changes including mild to moderate diffuse volume loss and mild scattered white matter hypoattenuation consistent with chronic small vessel is chemic disease.
[2024-06-23 22:19] VITALS: BP 153/111; PULSE 65; RESP 21; O2SAT 94
--- NOTE | 2024-06-23 22:19 | ECG_ITS ---
Test Date: 2024-06-23 22:26:54 Measurements Intervals [place] Rate: 65 P: 36 [place]: 251 QRS: -30 QRSD: 94 T: 92 QT: 400 QTc: 417 Interpretive Statements SINUS RHYTHM WITH SINUS ARRHYTHMIA WITH FIRST DEGREE AV BLOCK BORDERLINE LEFT AXIS DEVIATION [QRS AXIS < -20] LEFT VENTRICULAR HYPERTROPHY AND ST-T CHANGE [VOLTAGE CRITERIA PLUS ST/T ABNORMALITY] Compared to ECG 03/06/2024 16:00:23 NO SIGNIFICANT CHANGES Electronically Signed On 06-24-2024 09:41:36 CDT by Geraldine Degroot M.D.
[2024-06-23 23:43] VITALS: BP 135/75; PULSE 64; RESP 18; O2SAT 98
--- NOTE | 2024-06-24 00:09 | ED.GENADULT ---
HPI - General Adult General Chief complaint: Headache Stated complaint: i think im having a stroke Time Seen by Provider: 06/23/24 22:26 History of Present Illness HPI narrative: Patient is a 79-year-old female who presents the emergency department this evening complaining of a headache. Patient states that and July of last year she suffered a hemorrhagic stroke and at that time symptoms did present with a headache so she was concerned that she was developing another stroke. Patient denies any additional symptoms including any dizziness, gait instability, blurry vision, any focal weakness, any numbness and no tingling. She also denies any some in worse headache of her life sensation. Patient states that by the time she got to the emergency department her headache has resolved. patient also states that she hates water and does not drink enough water which could be contributing to her headaches. No additional symptoms or concerns at this time. Related Data Home Medications Medication Instructions Recorded Confirmed simvastatin 20 mg tablet 20 mg PO DAILY 07/25/19 12/18/23 apixaban 5 mg tablet (Eliquis) 5 mg PO DAILY 11/24/19 12/18/23 bupropion HCl 150 mg 24 hr tablet, 150 mg PO DAILY 03/15/21 12/18/23 extended release ferrous sulfate 325 mg (65 mg 325 mg PO DAILY 03/15/21 12/18/23 iron) tablet olmesartan 40 mg tablet 40 mg PO DAILY 01/06/23 12/18/23 acetaminophen 300 mg-codeine 30 mg 1 tablet PO TID PRN Pain (Scale 12/18/23 12/18/23 tablet Score 4-6) allopurinol 100 mg tablet 100 mg PO DAILY 12/18/23 12/18/23 folic acid 1 mg tablet 1 mg PO DAILY 12/18/23 12/18/23 gabapentin 400 mg tablet 800 mg PO HS 12/18/23 12/18/23 metoprolol tartrate 25 mg tablet 50 mg PO DAILY 12/18/23 12/18/23 mirtazapine 30 mg tablet 30 mg PO DAILY 12/18/23 12/18/23 pantoprazole 40 mg tablet,delayed 40 mg PO DAILY 12/18/23 12/18/23 release sennosides 8.6 mg-docusate sodium 1 tab-cap PO BID 12/18/23 12/18/23 50 mg tablet (Senexon-S) thiamine HCl (vitamin B1) 100 mg 100 mg PO DAILY 12/18/23 12/18/23 tablet Allergies Allergy/AdvReac Type Severity Reaction Status Date / Time No Known Allergies Allergy Verified 06/23/24 22:15 Review of Systems Review of Systems: All systems are reviewed and are negative unless stated otherwise in the HPI. [facility] Past Medical History Medical History Aortic stenosis Cerebrovascular accident Depression Dyslipidemia Esophageal ulcer Approximately 15 years ago Essential hypertension Overflow stress urinary incontinence in female Paroxysmal atrial flutter Diagnosed July 2019 Pneumonia Treated as outpatient July 2015 and January 2018, was admitted as inpatient July 2019 Pulmonary hypertension Mild on echocardiogram from May 2019 with RVSP 41 Shingles Transient ischemic attack Surgical History Surgical History History of appendectomy History of cataract extraction with lens replacement History of tonsillectomy Family History Family History Mother Breast cancer She of old age at 90 years old Son Pulmonary embolism He in his 50's. Father Pneumonia in his 90's with pneumonia. Social History Social History Social History: Surrogate medical decision maker: Briana lobo, niece. Code status: Full code. Years smoked: 20 Smoking status: Former smoker Second hand tobacco smoke exposure: Yes Alcohol intake: current Drinks per week: 20 Alcohol use details: She drinks 4 mixed drinks with 1 shot of whiskey per drink each night. She has done this at least since her mid 30s or 40s. Substance use: never Substance use type: does not use Do You Feel Safe in your Home?: Yes Lack o
[2024-06-24] MEDS: ACETAMINOPHEN 325 MG TABLET 650 MG PO (00:22)
[2024-06-24 00:31] VITALS: BP 135/82; PULSE 83; RESP 16; O2SAT 97
== END 2024-06-24 00:33 | disposition home or self-care (01) ==
PROVIDERS: Emergency Provider Emergency Medicine
DX: R51.9 Headache, unspecified (principal); Z79.01 Long term (current) use of anticoagulants; E78.5 Hyperlipidemia, unspecified; I10 Essential (primary) hypertension; Z86.73 Personal history of transient ischemic attack (TIA), and cerebral infarction without residual deficits; Z87.891 Personal history of nicotine dependence
CPT/HCPCS: 70450; 93005; 99284; A9270